=== PATIENT | male | born 1940 | race Caucasian/White ===

== ENCOUNTER 2017-11-24 20:27 | Outpatient (CLI) | payer MEDICARE, OTHER | END 2017-11-24 20:28 | disposition short-term general hospital (02) | LOC: EMS 20:27 | PROVIDERS: ATTEND Surgery | DX: R10.9 Unspecified abdominal pain (principal); R55 Syncope and collapse | CPT/HCPCS: A0425; A0427 ==

== ENCOUNTER 2017-11-25 17:34 | Inpatient (IN) | payer MEDICARE, OTHER ==
[2017-11-25 18:06] LABS: BASOPHILS % (AUTO) 0.2 %; HGB - HEMOGLOBIN 13.2 g/dL (14.0-18.0); LYMPHOCYTES # (AUTO) 0.5 10^3/uL (1.5-3.5); LYMPHOCYTES % (AUTO) 5.2 %; MEAN CORPUSCULAR HEMOGLOBIN 33.3 pg (27.0-31.0); MEAN CORPUSCULAR HGB CONC 33.5 g/dL (32.0-36.0); MEAN CORPUSCULAR VOLUME 99.3 fL (80.0-94.0); MEAN PLATELET VOLUME 8.6 fL (7.4-11.4); MONOCYTES # (AUTO) 0.8 10^3/uL (0.0-1.0); MONOCYTES % (AUTO) 7.8 %; NEUTROPHILS # (AUTO) 9.2 10^3/uL (1.5-6.6); NEUTROPHILS % (AUTO) 86.8 %; PLT - PLATELET COUNT 170 10^3/uL (130-450); RED BLOOD COUNT 3.95 10^6/uL (4.70-6.10); RED CELL DISTRIBUTION WIDTH 13.3 % (12.0-15.0); WHITE BLOOD COUNT 10.6 x10^3/uL (4.8-10.8)
[2017-11-25 18:17] LABS: ALBUMIN 3.1 g/dL (3.2-5.5); ALBUMIN/GLOBULIN RATIO 0.9 (1.0-2.2); BILIRUBIN,TOTAL 1.3 mg/dL (0.2-1.0); CALCIUM 8.6 mg/dL (8.5-10.3); CREATININE 1.5 mg/dL (0.6-1.2); INR 1.2 (0.8-1.2); PT - PROTHROMBIN TIME 13.7 secs (9.9-12.6); TOTAL PROTEIN 6.4 g/dL (6.7-8.2)
--- NOTE | 2017-11-25 18:55 | CT Report ---
Procedure Date: 11/25/2017 Accession Number: [id number] / [id number] Procedure: CT - Head W/O CPT Code: FULL RESULT: EXAM: CT HEAD EXAM DATE: 11/25/2017 06:31 PM. CLINICAL HISTORY: ALOC. COMPARISON: None. TECHNIQUE: Multiaxial CT images were obtained from the foramen magnum to the vertex. Reformats: Coronal. IV contrast: None. In accordance with CT protocol optimization, one or more of the following dose reduction techniques were utilized for this exam: automated exposure control, adjustment of mA and/or KV based on patient size, or use of iterative reconstructive technique. FINDINGS: Parenchyma: No intraparenchymal hemorrhage. No evidence of mass, midline shift, or CT findings of infarction. Gongora-white differentiation is distinct. Extraaxial Spaces: Mild volume loss. No subdural or epidural collections identified. Ventricles: Mildly enlarged. Sinuses and Orbits: Imaged paranasal sinuses, orbits, and mastoids show no significant abnormality. Bones: No evidence of fracture or calvarial defect. Other: None. IMPRESSION: No acute intracranial abnormality. RADIA
[2017-11-25] MEDS ORDERED: THIAMINE INJ 100 MG, FOLIC ACID INJ 1 MG in SODIUM CHLORIDE 0.9% 100ML 100 ML IV STA (18:57)
[2017-11-25] MEDS ORDERED: MAGNESIUM SULFATE 2 GRAM 2 GM/50 ML BAG IV STA (18:57)
[2017-11-25] MEDS ORDERED: MULTIVITAMIN 10 ML in SODIUM CHLORIDE 0.9% 1,000 ML IV STA (18:57)
[2017-11-25] MEDS ORDERED: LORazepam 2 MG/ML VIAL IVP STA (18:58)
[2017-11-25] MEDS ORDERED: MAGNESIUM SULFATE 2 GM in SODIUM CHLORIDE 0.9% 50 ML IV STA ×2 (19:00→19:11)
--- NOTE | 2017-11-25 19:00 | ED Physician Documentation ---
PD HPI ALTERED MENTAL STATUS - Stated complaint Stated Complaint: CONFUSION/WARFARIN - Chief complaint Chief Complaint: Neuro - History obtained from History obtained from: Patient, Family - History of Present Illness Timing - onset: Today Timing - duration: Days (1) Timing - details: Gradual onset Quality / character: Confused, Disoriented, Hallucinating Associated symptoms: General weakness. No: Fever, Headache, Stiff neck, Dyspnea , Cough, NVD, Urinary sx, Focal weakness, Seizure activity, Syncope Contributing factors: Known dementia Basline status: Alert and oriented X 3, Ambulatory, Independent Recently seen: Admitted (to [facility] for GI bleed, discharged today) - Additional information Additional information: Patient is a 77-year-old male who is brought in to the hospital tonight by his for hallucinations and disorientation. She states that this has happened before but never this bad. He is an alcoholic drinks at least a sixpack of beer a day. Last drink was yesterday as he was in the hospital overnight for a GI bleed. The symptoms have worsened since he got home. He was admitted at [facility] last night Review of Systems Unable to obtain: Confused, Dementia Constitutional: denies: Fever GI: denies: Vomiting Neurologic: reports: Confused, Altered mental status. denies: Focal weakness PD PAST MEDICAL HISTORY - Past Medical History Past Medical History: Yes Cardiovascular: Deep vein thrombosis - Past Surgical History Past Surgical History: Yes Cardiovascular: CABG, Coronary stent - Present Medications Home Medications: Ambulatory Orders Medication Instructions Recorded Confirmed Ascorbic Acid 500 mg ORAL DAILY 11/25/17 11/25/17 Citalopram [CeleXA] 20 mg PO DAILY 11/25/17 11/25/17 Metoprolol Succinate 12.5 mg PO DAILY 11/25/17 11/25/17 Nitroglycerin 0.4 mg SL 11/25/17 OLANZapine [Zyprexa Zydis] 10 mg PO 11/25/17 [place]-3S/Dha/Epa/Fish Oil/D3 1 each PO 11/25/17 [[place]-3 + D Softgel] Pantoprazole [Protonix] 40 mg PO 11/25/17 Warfarin [Coumadin] 5 mg PO 1400 11/25/17 11/25/17 busPIRone [Buspar] 10 mg PO BID 11/25/17 11/25/17 - Allergies Allergies/Adverse Reactions: Allergies Allergy/AdvReac Type Severity Reaction Status Date / Time haloperidol [From Haldol] Allergy Anaphylaxis Verified 11/25/17 19:16 - Living Situation Living Situation: reports: With family Living Arrangement: reports: At home - Social History Does the pt smoke?: No Does the pt drink ETOH?: Yes PD ED PE NORMAL - Vitals Vital signs reviewed: Yes - General General: No acute distress, Well developed/nourished - HEENT HEENT: PERRL, Moist mucous membranes, Pharynx benign - Neck Neck: Supple, no meningeal sign - Cardiac Cardiac: RRR, Strong equal pulses - Respiratory Respiratory: No respiratory distress, Clear bilaterally - Abdomen Abdomen: Soft, Non tender, Non distended - Back Back: No spinal TTP - Derm Derm: Warm and dry, No rash - Extremities Extremities: No edema, No calf tenderness / cord - Neuro Neuro: No motor deficit, No sensory deficit, Normal speech Results - Vitals Vitals: Vital Signs - 24 hr 11/25/17 11/25/17 11/25/17 17:44 19:28 20:58 Temperature 36.8 C Heart Rate 77 78 85 Heart Rate [ Radial] Respiratory 16 28 H 29 H Rate Blood Pressure 117/78 125/85 H 127/90 H Blood Pressure [Right Brachial artery] O2 Saturation 94 95 95 11/25/17 21:09 Temperature Heart Rate Heart Rate [ 85 Radial] Respiratory 17 Rate Blood Pressure Blood Pressure 130/67 [Right Brachial artery] O2 Saturation 97 Oxygen O2 Source Room air - Labs Labs: Laboratory Tests 11/25/17 11/25/17 11/25/17 17:50 18:01 18:01 WBC 10.6 RBC 3.95 L Hgb 13.2 L Hct 39.3 L MCV 99.3 H MCH 33.3 H MCHC 33.5 RDW 13.3 Plt Count 170 MPV 8.6 Neut # (Auto) 9.2 H Lymph # (Auto) 0.5 L Kern # (Auto) 0.8 Eos # (Auto) 0.0 Baso # (Auto) 0.0 Absolute Nucleated RBC 0.00 Nucleated RBC % 0.0 PT INR VBG pH VBG pCO2 VBG pO2 VBG HCO3 VBG Total CO2 VBG O2 Saturation VBG Base Excess Sodium 136 Potassium 4.1 Chloride 111 Carbon Dioxide 17 L Anion Gap 8.0 BUN 27 H Creatinine 1.5 H Estimated GFR (MDRD) 45 L Glucose 116 H POC Whole Bld Glucose 117 H Calcium 8.6 Total Bilirubin 1.3 H AST 35 ALT 20 Alkaline Phosphatase 53 Ammonia Total Protein 6.4 L Albumin 3.1 L Globulin 3.3 Albumin/Globulin Ratio 0.9 L Lipase 22 Urine Color Urine Clarity Urine pH Ur Specific Fate Urine Protein Urine Glucose (UA) Urine Ketones Urine Occult Blood Urine Nitrite Urine Bilirubin Urine Urobilinogen Ur Leukocyte Esterase Urine RBC Urine WBC Urine WBC Clumps Ur Squamous Epith Cells Urine Bacteria Ur Microscopic Review Urine Culture Comments Ethyl Alcohol Serum Ketones 11/25/17 11/25/17 11/25/17 18:01 18:01 18:10 WBC RBC Hgb Hct MCV MCH MCHC RDW Plt Count MPV Neut # (Auto) Lymph # (Auto) Kern # (Auto) Eos # (Auto) Baso # (Auto) Absolute Nucleated RBC Nucleated RBC % PT 13.7 H INR 1.2 VBG pH VBG pCO2 VBG pO2 VBG HCO3 VBG Total CO2 VBG O2 Saturation VBG Base Excess Sodium Potassium Chloride Carbon Dioxide Anion Gap BUN Creatinine Estimated GFR (MDRD) Glucose POC Whole Bld Glucose Calcium Total Bilirubin AST ALT Alkaline Phosphatase Ammonia Total Protein Albumin Globulin Albumin/Globulin Ratio Lipase Urine Color Urine Clarity Urine pH Ur Specific Fate Urine Protein Urine Glucose (UA) Urine Ketones Urine Occult Blood Urine Nitrite Urine Bilirubin Urine Urobilinogen Ur Leukocyte Esterase Urine RBC Urine WBC Urine WBC Clumps Ur Squamous Epith Cells Urine Bacteria Ur Microscopic Review Urine Culture Comments Ethyl Alcohol < 5.0 Serum Ketones NEGATIVE 11/25/17 11/25/17 11/25/17 19:06 20:35 20:55 WBC RBC Hgb Hct MCV MCH MCHC RDW Plt Count MPV Neut # (Auto) Lymph # (Auto) Kern # (Auto) Eos # (Auto) Baso # (Auto) Absolute Nucleated RBC Nucleated RBC % PT INR VBG pH 7.470 H VBG pCO2 26.0 L VBG pO2 43.7 VBG HCO3 18.5 L VBG Total CO2 19.3 L VBG O2 Saturation 85.2 H VBG Base Excess -3.7 L Sodium Potassium Chloride Carbon Dioxide Anion Gap BUN Creatinine Estimated GFR (MDRD) Glucose POC Whole Bld Glucose Calcium Total Bilirubin AST ALT Alkaline Phosphatase Ammonia 16.3 Total Protein Albumin Globulin Albumin/Globulin Ratio Lipase Urine Color YELLOW Urine Clarity HAZY Urine pH 6.0 Ur Specific Fate 1.025 Urine Protein TRACE Urine Glucose (UA) NEGATIVE Urine Ketones NEGATIVE Urine Occult Blood MODERATE H Urine Nitrite NEGATIVE Urine Bilirubin NEGATIVE Urine Urobilinogen 0.2 (NORMAL) Ur Leukocyte Esterase NEGATIVE Urine RBC 11-25 H Urine WBC 11-25 H Urine WBC Clumps PRESENT Ur Squamous Epith Cells RARE Squamous Urine Bacteria Few Ur Microscopic Review INDICATED Urine Culture Comments INDICATED Ethyl Alcohol Serum Ketones - Rads (name of study) head ct Radiology: Prelim report reviewed, EMP read contemporaneously, See rad report ( IMPRESSION: No acute intracranial abnormality. ) PD MEDICAL DECISION MAKING - ED course Complexity details: reviewed old records, reviewed results, re-evaluated patient , considered differential, d/w patient, d/w family, d/w [employer] ax consultant ED course: Patient is a 77-year-old male who presents to the emergency department with altered mental status. He is alert's, oriented to person only. He is acutely altered. Possible alcohol withdrawal? Possible infectious source? Urinalysis and chest x-ray are pending at the time of admission and these will be followed up by the hospitalist, Dr. Wu. Given banana bag and ativan in the ED. This document was made in part using voice recognition software. While efforts are made to proofread this document, sound alike and grammatical errors may occur. - Sepsis Event Vital Signs: Vital Signs - 24 hr 11/25/17 11/25/17 11/25/17 17:44 19:28 20:58 Temperature 36.8 C Heart Rate 77 78 85 Heart Rate [ Radial] Respiratory 16 28 H 29 H Rate Blood Pressure 117/78 125/85 H 127/90 H Blood Pressure [Right Brachial artery] O2 Saturation 94 95 95 11/25/17 21:09 Temperature Heart Rate Heart Rate [ 85 Radial] Respiratory 17 Rate Blood Pressure Blood Pressure 130/67 [Right Brachial artery] O2 Saturation 97 Oxygen O2 Source Room air Departure - Departure Disposition: ED Place in Observation Clinical Impression: Altered mental status Qualifiers: Altered mental status type: unspecified Qualified Code(s): R41.82 - Altered mental status, unspecified Condition: Stable Discharge Date/Time: 11/25/17 21:08
[2017-11-25 19:12] LABS: VBG BASE EXCESS -3.7 mmol/L (-2 - +2); VBG PH 7.47 (7.31-7.41); VBG PO2 43.7 mmHg (25-47); VBG TOTAL CO2 19.3 mmol/L (24-29)
[2017-11-25] MEDS ORDERED: ACETAMINOPHEN 325 MG TABLET PO PRN (20:17)
[2017-11-25] MEDS ORDERED: PANTOPRAZOLE 40 MG VIAL IVP STA ×2 (20:17→20:36)
[2017-11-25] MEDS ORDERED: ONDANSETRON 4 MG/2 ML VIAL IVP PRN (20:17)
[2017-11-25] MEDS ORDERED: LORazepam 2 MG/ML VIAL IVP PRN (20:17)
[2017-11-25] MEDS ORDERED: PROCHLORPERAZINE 10 MG/2 ML VIAL IVP PRN (20:17)
--- NOTE | 2017-11-25 21:01 | XRAY Report ---
Procedure Date: 11/25/2017 Accession Number: [id number] / [id number] Procedure: XR - Chest 1 View X-Ray CPT Code: 63138 FULL RESULT: EXAM: CHEST RADIOGRAPHY EXAM DATE: 11/25/2017 08:24 PM. CLINICAL HISTORY: Altered mental status. COMPARISON: 07/27/2013. TECHNIQUE: 1 view. FINDINGS: Lungs/Pleura: Blunting of the left costophrenic angle with dense left lower lobe opacities. No pneumothorax. The right lung is clear. No right pneumothorax or effusion. Mediastinum: Status post sternotomy. No cardiac enlargement. Atheromatous plaques are noted in the thoracic arch. Other: None. IMPRESSION: 1. Sternotomy. No cardiac enlargement. 2. Left lower lobe opacities with small left pleural effusion. RADIA
[2017-11-25 21:05] LABS: BILIRUBIN,URINE NEGATIVE (NEGATIVE); GLUCOSE, URINE (UA) NEGATIVE (NEGATIVE); KETONES,URINE (UA) NEGATIVE (NEGATIVE); LEUKOCYTE ESTERASE, URINE NEGATIVE (NEGATIVE); NITRITE,URINE NEGATIVE (NEGATIVE); OCCULT BLOOD,URINE MODERATE (NEGATIVE); PROTEIN,URINE TRACE mg/dL (NEGATIVE); UROBILINOGEN,URINE 0.2 (NORMAL) E.U./dL (NORMAL)
[2017-11-25 21:11] LABS: CLARITY,URINE HAZY (CLEAR); WBC CLUMPS,URINE PRESENT
[2017-11-25 21:12] LABS: BACTERIA,URINE Few /HPF (None Seen); SQUAMOUS EPITHELIAL CELL,UR RARE Squamous (<= Few)
--- NOTE | 2017-11-25 21:56 | HISTORY & PHYSICAL EXAMINATION ---
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 The patient is unable to provide history due to altered mental status and dementia and the patient's history is provided by his . The patient's states that normally the patient is alert and oriented. He still drives and he still takes his dog out for a hike every day. She states that he is forgetful but does not have severe dementia. She states that over the last 2 days he has become increasingly weak. She states that he was unable to do his normal daily routine because he just felt so weak and fatigued. Yesterday she states that he began having abdominal pain and the patient's and daughter decided to take him to the emergency department at [facility]. The patient's states that while getting the patient into the car to go to the emergency department he passed out. He was worked up at [facility] and found to have an INR of 2.7 with heme positive stools. The patient's hemoglobin was 12.7 and he was placed in observation. The patient's aspirin and Coumadin were held and he was given Protonix daily. They did not perform EGD as it was felt the patient likely had gastritis or peptic ulcer disease from drinking alcohol, taking aspirin and Coumadin. The patient's hemoglobin remained stable overnight and he was discharged home and told to hold his Coumadin. The patient's states that after discharge from [facility] the patient returned home and was hallucinating. She states he was talking about horses that were not there. She states that he did not recognize her and was very confused. She also states that he became increasingly weak over the course of the day to the point where he was barely able to stand. She became very concerned and decided to bring him back to the emergency department this time at [facility]. The patient was no longer complaining of abdominal pain. He was not having any fevers or chills according to the patient's . The patient is unable to provide a detailed review of systems due to his altered mentation. However the patient's did not note the patient going to the bathroom more frequently or complaining of any dysuria. She also did not note him having any new cough or shortness of breath. On presentation to the emergency department the patient was afebrile and had normal vital signs. The patient was very confused and had had a change from his normal mental status. The patient's lab work revealed no leukocytosis, hemoglobin of 13.2 which was stable from his discharge from [facility] earlier in the day. The patient's creatinine was 1.5 which is near his baseline. Patient's bilirubin was 1.3 which was mildly elevated. Patient's ammonia level was normal. Patient's UA revealed 11-25 RBCs and 11-25 WBCs concerning for a urinary tract infection. The patient's chest x-ray revealed left lower lobe opacities with small left pleural effusion concerning for pneumonia. The patient did undergo a CT of his head given his altered mentation and was found to have no acute intracranial abnormality. Given the patient's altered mentation and generalized weakness in the setting of UTI and pneumonia patient was admitted for treatment of both UTI and pneumonia. With IV antibiotics and IV fluids. History - Past Medical History Cardiovascular: reports: High cholesterol, Coronary artery disease, Deep vein thrombosis Respiratory: reports: None Neuro: reports: Dementia, Head injury, Seizure disorder, Other (Encephalitis) GI: reports: GI bleed : reports: Renal insuffiency Psych: reports: Depression Musculoskeletal: reports: Osteoarthritis, Gout Other Past Medical History: encelphalitis - Past Surgical History Ortho: reports: Other Cardiovascular: reports: CABG, Coronary stent - Family & Social History Family History: Mother: , Cancer (mom had blood ca and GF had melanoma) , Father: , Mental Illness (Depression and suicide), Brother: Mental Illness, Other family: Cancer, Mental Illness Living arrangement: At home Living Situation: With spouse/s.o. Social History Notes: The patient has lived on [facility] for the last 30 years. He is a retired casino cashier. He was originally from [place] and worked as a casino cashier for 50 years until he retired just a couple of years ago. The patient is and has been to his for 51 years. The patient's is originally from [place]. They have 2 children both of whom live on [facility]. The patient has been chewing tobacco for 70 years but does not smoke cigarettes. He drinks about a 6 pack a day on average and has been doing so consistently for the last 6 months. Prior to that he would only drink a couple of beers a night. He does not use any illicit drugs. - POLST Patient has POLST: No POLST Status: Full Code Meds/Allgy - Home Medications Home Medications: Ambulatory Orders Medication Instructions Recorded Confirmed Ascorbic Acid 500 mg ORAL DAILY 11/25/17 11/25/17 Citalopram [CeleXA] 20 mg PO DAILY 11/25/17 11/25/17 Metoprolol Succinate 12.5 mg PO DAILY 11/25/17 11/25/17 Nitroglycerin 0.4 mg SL 11/25/17 OLANZapine [Zyprexa Zydis] 10 mg PO 11/25/17 [place]-3S/Dha/Epa/Fish Oil/D3 1 each PO 11/25/17 [[place]-3 + D Softgel] Pantoprazole [Protonix] 40 mg PO 11/25/17 Warfarin [Coumadin] 5 mg PO 1400 11/25/17 11/25/17 busPIRone [Buspar] 10 mg PO BID 11/25/17 11/25/17 - Allergies Allergies/Adverse Reactions: Allergies Allergy/AdvReac Type Severity Reaction Status Date / Time haloperidol [From Haldol] Allergy Anaphylaxis Verified 11/25/17 19:16 Review of Systems - Other Findings Other Findings: Unable to obtain a conference of review of systems secondary to the patient's altered mentation. Review of systems was obtained from the patient's and the pertinent positives and negatives are stated above in the HPI. Exam - Vital Signs Reviewed Vital Signs: Yes - Physical Exam General Appearance: positive: Alert, Mild distress (very weak), Other (Confused , does not know his wifes name or where he is.) Eyes Bilateral: positive: Normal inspection, PERRL, EOMI, No lid inflammation, Conjunctivae nml, No scleral icterus ENT: positive: ENT inspection nml, Pharynx nml, Dry mucous membranes. negative : Purulent nasal drainage, Pharyngeal erythema, Oral lesions Neck: positive: Nml inspection, Thyroid nml, No JVD, Trachea midline. negative : Thyromegaly, Lymphadenopathy (R), Lymphadenopathy (L), Stiff neck, Carotid bruit, Tracheal deviation Respiratory: positive: Chest non-tender, No respiratory distress, Rales (Left base), Rhonchi (Left lower lung) Cardiovascular: positive: Regular rate & rhythm, No murmur, No gallop Peripheral Pulses: positive: 2+ Abdomen: positive: Non-tender, No organomegaly, Nml bowel sounds, No distention. negative: Guarding, Rebound, Hepatomegaly Back: positive: Nml inspection. negative: CVA tenderness (R), CVA tenderness (L ) Skin: positive: Color nml, No rash, Warm, Dry. negative: Cyanosis, Diaphoresis , Pallor Extremities: positive: Non-tender, Full ROM, Nml appearance, No pedal edema Neurologic/Psychiatric: positive: CN's nml (2-12), Motor nml, Sensation nml, Mood/affect nml, Disoriented to place, Disoriented to time, Weakness ( generalized) Conclusion/Plan - Problem List (1) CAP (community acquired pneumonia) Conclusion/Plan: Patient presented with generalized weakness and confusion. Patient was afebrile and was not hypoxic on presentation. Patient's chest x-ray does reveal left lung opacities and a pleural effusion. Given the patient's systemic symptoms he will be treated with IV antibiotics for pneumonia. Plan: IV Levaquin Oxygen as needed CT chest given history of tobacco use to rule out possible malignancy PT evaluation given weakness Qualifiers: Laterality: left Lung location: lower lobe of lung Qualified Code(s): J18.1 - Lobar pneumonia, unspecified organism (2) UTI (urinary tract infection) Conclusion/Plan: Patient presented with generalized weakness and altered mental status. Patient' s urinalysis was positive with RBCs and WBCs. Ultrasound of the patient's abdomen also revealed an enlarged prostate. Patient likely has UTI and possible prostatitis. Plan: Treat with IV Levaquin and consider prolonged treatment for prostatitis with minimum of 14 days of treatment and up to 6 weeks of treatment. Follow-up urine culture PT evaluation for weakness Qualifiers: Urinary tract infection type: acute cystitis Hematuria presence: with hematuria Qualified Code(s): N30.01 - Acute cystitis with hematuria (3) Metabolic encephalopathy Conclusion/Plan: Patient presents with confusion which is likely secondary to infection UTI and pneumonia. Patient does not appear to be in alcohol withdrawal and has a normal ammonia level. Patient's CT head was negative. Plan: Patient will be given IV fluids and treated with IV antibiotics we will continue to monitor his mentation. Patient has a history of dementia and is at high risk of having delirium therefore the patient will be given Zyprexa at night and we will monitor for delirium. (4) Generalized weakness Conclusion/Plan: Patient presented with generalized weakness and was having difficulty just standing. This was a huge change from his normal routine where he hikes for more than an hour a day with his dog. This is likely secondary to ongoing infection with UTI and pneumonia. Plan: Treat infection with IV antibiotics and order PT. (5) Alcohol abuse Conclusion/Plan: Patient has a history of alcohol abuse cording to the he has been drinking more heavily for the last 6 months. She states that he has been drinking a sixpack of beer a day. She states he has never gone through alcohol withdrawal and she does not believe that his current condition is due to alcohol withdrawal. The patient does not show any signs of alcohol withdrawal aside from hallucinations which the patient's states he has had before when he had a urinary tract infection with Klebsiella. The patient however does appear to be dehydrated and would likely benefit from a banana bag. Plan: Patient will be placed on a banana bag with IV thiamine, IV folic acid and IV multivitamin. Patient will be monitored for alcohol withdrawal and given Ativan as needed Patient will be counseled on need to quit drinking once he is more alert and aware. (6) CKD (chronic kidney disease) stage 3, GFR 30-59 ml/min Conclusion/Plan: Patient has CKD stage III and his creatinine appears stable on presentation. The patient's ultrasound of his abdomen shows that he does not have any postobstructive renal failure. It does show medical renal disease. Plan: Patient will be given IV fluids We will monitor his creatinine Avoid nephrotoxic agents (7) History of DVT (deep vein thrombosis) Conclusion/Plan: Patient has a history of DVT and he has positive leiden 5 mutation. He was previously on lifelong Coumadin but was stopped yesterday as there was suspicion for possible GI bleed. We will continue to hold the Coumadin while the patient is hospitalized and will have him follow-up with his primary care physician and allow them to decide whether to continue the Coumadin. Patient's INR is 1.2 on presentation. - Lab Results Lab results reviewed: Yes Fish Bones: 11/25/17 18:01 11/25/17 18: Other Lab Results: Laboratory Results WBC 10.6 x10^3/uL (4.8-10.8) 11/25/17 18: RBC 3.95 10^6/uL (4.70-6.10) L 11/25/17 18: Hgb 13.2 g/dL (14.0-18.0) L 11/25/17 18: Hct 39.3 % (42.0-52.0) L 11/25/17 18: MCV 99.3 fL (80.0-94.0) H 11/25/17 18: MCH 33.3 pg (27.0-31.0) H 11/25/17 18: MCHC 33.5 g/dL (32.0-36.0) 11/25/17 18: RDW 13.3 % (12.0-15.0) 11/25/17 18: Plt Count 170 10^3/uL (130-450) 11/25/17 18: MPV 8.6 fL (7.4-11.4) 11/25/17 18:01 Neut # (Auto) 9.2 10^3/uL (1.5-6.6) H 11/25/17 18: Lymph # (Auto) 0.5 10^3/uL (1.5-3.5) L 11/25/17 18:01 Walsh # (Auto) 0.8 10^3/uL (0.0-1.0) 11/25/17 18: Eos # (Auto) 0.0 10^3/uL (0.0-0.7) 11/25/17 18: Baso # (Auto) 0.0 10^3/uL (0.0-0.1) 11/25/17 18: Absolute Nucleated RBC 0.00 x10^3/uL 11/25/17 18: Nucleated RBC % 0.0 /100WBC 11/25/17 18: PT 13.7 secs (9.9-12.6) H 11/25/17 18:01 INR 1.2 (0.8-1.2) 11/25/17 18:01 VBG pH 7.470 (7.31-7.41) H 11/25/17 19:06 VBG pCO2 26.0 mmHg (41-51) L 11/25/17 19:06 VBG pO2 43.7 mmHg (25-47) 11/25/17 19:06 VBG HCO3 18.5 mmol/L (23-28) L 11/25/17 19:06 VBG Total CO2 19.3 mmol/L (24-29) L 11/25/17 19:06 VBG O2 Saturation 85.2 % (60-80) H 11/25/17 19:06 VBG Base Excess -3.7 mmol/L (-2 - +2) L 11/25/17 19:06 Sodium 136 mmol/L (135-145) 11/25/17 18: Potassium 4.1 mmol/L (3.5-5.0) 11/25/17 18: Chloride 111 mmol/L (101-111) 11/25/17 18:01 Carbon Dioxide 17 mmol/L (21-32) L 11/25/17 18:01 Anion Gap 8.0 (6-13) 11/25/17 18:01 BUN 27 mg/dL (6-20) H 11/25/17 18:01 Creatinine 1.5 mg/dL (0.6-1.2) H 11/25/17 18:01 Estimated GFR (MDRD) 45 (>89) L 11/25/17 18:01 Glucose 116 mg/dL (70-100) H 11/25/17 18:01 POC Whole Bld Glucose 117 mg/dL (70 - 100) H 11/25/17 17:50 Calcium 8.6 mg/dL (8.5-10.3) 11/25/17 18:01 Total Bilirubin 1.3 mg/dL (0.2-1.0) H 11/25/17 18:01 AST 35 IU/L (10-42) 11/25/17 18:01 ALT 20 IU/L (10-60) 11/25/17 18:01 Alkaline Phosphatase 53 IU/L (42-121) 11/25/17 18:01 Ammonia 16.3 umol/L (7-35) 11/25/17 20:35 Total Protein 6.4 g/dL (6.7-8.2) L 11/25/17 18:01 Albumin 3.1 g/dL (3.2-5.5) L 11/25/17 18: Globulin 3.3 g/dL (2.1-4.2) 11/25/17 18: Albumin/Globulin Ratio 0.9 (1.0-2.2) L 11/25/17 18:01 Lipase 22 U/L (22-51) 11/25/17 18:01 Urine Color YELLOW 11/25/17 20:55 Urine Clarity HAZY (CLEAR) 11/25/17 20:55 Urine pH 6.0 PH (5.0-7.5) 11/25/17 20:55 Ur Specific Agate 1.025 (1.002-1.030) 11/25/17 20:55 Urine Protein TRACE mg/dL (NEGATIVE) 11/25/17 20:55 Urine Glucose (UA) NEGATIVE mg/dL (NEGATIVE) 11/25/17 20:55 Urine Ketones NEGATIVE mg/dL (NEGATIVE) 11/25/17 20:55 Urine Occult Blood MODERATE (NEGATIVE) H 11/25/17 20:55 Urine Nitrite NEGATIVE (NEGATIVE) 11/25/17 20:55 Urine Bilirubin NEGATIVE (NEGATIVE) 11/25/17 20:55 Urine Urobilinogen 0.2 (NORMAL) E.U./dL (NORMAL) 11/25/17 20:55 Ur Leukocyte Esterase NEGATIVE (NEGATIVE) 11/25/17 20:55 Urine RBC 11-25 /HPF (0-5) H 11/25/17 20:55 Urine WBC 11-25 /HPF (0-3) H 11/25/17 20:55 Urine WBC Clumps PRESENT 11/25/17 20:55 Ur Squamous Epith Cells RARE Squamous (<= Few) 11/25/17 20:55 Urine Bacteria Few /HPF (None Seen) 11/25/17 20:55 Ur Microscopic Review INDICATED 11/25/17 20:55 Urine Culture Comments INDICATED 11/25/17 20:55 Ethyl Alcohol < 5.0 mg/dL 11/25/17 18:01 Serum Ketones NEGATIVE (NEGATIVE) 11/25/17 18:10 - Diagnostic Imaging Results Diagnostic Imaging Results: positive: Final report reviewed Diagnostic Imaging Results Comments: CT head Impression: No acute intracranial abnormality. Chest x-ray Impression: 1. Sternotomy. No cardiac enlargement. 2. Left lower lobe opacities with small pleural effusion. Abdominal ultrasound Impression: 1. Hepatic echotexture is somewhat coarse raising suspicion for chronic liver disease 2. Enlarged prostate 3. Suspect medical renal disease. - EKG Results EKG Interpreted Independently: Yes EKG Findings: No significant ST elevations Core Measures - Anticipated LOS I expect patient to be DC'd or transferred within 96 hours.: Yes - DVT/VTE - Prophylaxis VTE/DVT Device ordered at admit?: Yes
[2017-11-25] MEDS ORDERED: levoFLOXacin 750 MG/150 ML 750 MG/150 ML BAG IV SCH (22:00)
[2017-11-25] MEDS: OLANZapine ODT 5 MG TABLET TL SCH (22:08)
[2017-11-25] MEDS: busPIRone 5 MG TABLET PO SCH (22:08)
[2017-11-25] MEDS ORDERED: SODIUM CHLORIDE FLUSH 0.9% 10 ML SYRINGE ONE (22:15)
--- NOTE | 2017-11-26 00:36 | Ultrasound Report ---
Procedure Date: 11/25/2017 Accession Number: [id number] / [id number] Procedure: US - Abdomen Complete CPT Code: FULL RESULT: EXAM: ABDOMEN ULTRASOUND EXAM DATE: 11/25/2017 10:53 PM. CLINICAL HISTORY: Alcoholic with altered mental status, concern for liver cirrhosis. COMPARISON: None. TECHNIQUE: Real-time scanning was performed with static images obtained. FINDINGS: Liver: Somewhat coarse echotexture without focal abnormality seen. Main portal vein flow: Hepatopetal. Gallbladder: No shadowing stones, gross wall thickening or reported tenderness. Biliary System: Common bile duct measures 5 mm. No intrahepatic or extrahepatic ductal dilatation. Pancreas: Not seen due to bowel gas. Kidneys: Right: 11 cm longitudinally. Cysts measuring up to 3 cm. No hydronephrosis. Echogenic parenchyma. Left: 12 cm longitudinally. Cysts measuring up to 3.5 cm. No hydronephrosis. Echogenic cortex. Spleen: 9 cm. Normal in size and echotexture. Aorta and Inferior Vena Cava: Unremarkable. Other: Probable moderately enlarged prostate. IMPRESSION: 1. Hepatic echotexture is somewhat coarse raising suspicion for chronic liver disease. 2. Enlarged prostate. 3. Suspect medical renal disease. RADIA
[2017-11-26] MEDS: SODIUM CHLORIDE FLUSH 0.9% 10 ML SYRINGE IVP SCH ×2 (01:20→08:25)
[2017-11-26] MEDS: SODIUM CHLORIDE FLUSH 0.9% 10 ML SYRINGE IVP PRN ×2 (02:45→04:27)
[2017-11-26] MEDS ORDERED: IOPAMIDOL-300 100 ML VIAL ONE (04:39)
[2017-11-26] MEDS ORDERED: IOPAMIDOL-300 100 ML VIAL IVP ONE (05:25)
--- NOTE | 2017-11-26 06:04 | CT Report ---
Procedure Date: 11/26/2017 Accession Number: [id number] / [id number] Procedure: CT - Chest W/ CPT Code: FULL RESULT: EXAM: CT CHEST EXAM DATE: 11/26/2017 05:26 AM. CLINICAL HISTORY: Left-sided opacities and effusion seen on chest x-ray. COMPARISONS: ABDOMEN COMPLETE 11/25/2017. TECHNIQUE: Routine helical CT imaging was performed through the chest. IV contrast: None. Reconstructions: Coronal and sagittal. In accordance with CT protocol optimization, one or more of the following dose reduction techniques were utilized for this exam: automated exposure control, adjustment of mA and/or KV based on patient size, or use of iterative reconstructive technique. FINDINGS: Lungs/Pleura: Small left pleural effusion. Moderate left lower lobe atelectasis. Mild right lung dependent atelectasis. Mediastinum and Upper Abdomen: Moderate to large hiatal hernia containing more than half of the stomach. Evidence of either distal esophagus or proximal gastric perforation. Moderate complex gas and fluid within the hernia sac adjacent to the stomach on axial images 46 through 52. Gas and fluid pocket to the left of the stomach in the hernia sac measures approximately 7 x 2.5 x 7 cm. There is a small amount of subdiaphragmatic free air as well. Adjacent to the gastric body in the upper abdomen is an approximately 6 x 4 x 4.5 cm gas and fluid collection, axial image 54. Previous CABG. Heart size upper normal. Noncontrast aorta grossly unremarkable. No bulky adenopathy. Bilateral renal cysts. Bones: Previous median sternotomy. No acute osseous abnormality seen. Other: None. IMPRESSION: 1. Either distal esophageal or proximal gastric perforation within a moderate to large hiatal hernia sac in the chest. Thoracic surgery consultation suggested. 2. Gas and fluid collections within the hernia sac and adjacent to the subdiaphragmatic stomach measure up to 6 x 4 x 4.5 cm and may reflect early abscesses. 3. Small left pleural effusion with moderate left lower lobe atelectasis. 4. Previous median sternotomy. RADIA The above findings were discussed with Dionicio Wu by Dr. Domenico Sheets at 06:02 hrs on 11/26/17.
[2017-11-26 06:20] LABS: BASOPHILS % (AUTO) 0.1 %; EOSINOPHILS % (AUTO) 0.2 %; HGB - HEMOGLOBIN 12.1 g/dL (14.0-18.0); LYMPHOCYTES # (AUTO) 0.5 10^3/uL (1.5-3.5); MEAN CORPUSCULAR HEMOGLOBIN 34.2 pg (27.0-31.0); MEAN CORPUSCULAR HGB CONC 34.2 g/dL (32.0-36.0); MEAN CORPUSCULAR VOLUME 100.1 fL (80.0-94.0); MONOCYTES # (AUTO) 0.5 10^3/uL (0.0-1.0); MONOCYTES % (AUTO) 6.7 %; PLT - PLATELET COUNT 138 10^3/uL (130-450); RED BLOOD COUNT 3.55 10^6/uL (4.70-6.10); RED CELL DISTRIBUTION WIDTH 13.2 % (12.0-15.0); WHITE BLOOD COUNT 8.1 x10^3/uL (4.8-10.8)
[2017-11-26 06:28] LABS: INR 1.2 (0.8-1.2); PT - PROTHROMBIN TIME 13.1 secs (9.9-12.6)
[2017-11-26] MEDS ORDERED: PIPERACILLIN/TAZOBACTAM 4.5 GM in SODIUM CHLORIDE 0.9% MINIBAG 100 ML IV STA (06:32)
[2017-11-26 06:34] LABS: ALBUMIN 2.6 g/dL (3.2-5.5); ALBUMIN/GLOBULIN RATIO 0.9 (1.0-2.2); BILIRUBIN,TOTAL 1.1 mg/dL (0.2-1.0); CALCIUM 8.2 mg/dL (8.5-10.3); CREATININE 1.4 mg/dL (0.6-1.2); MAGNESIUM 2.2 mg/dL (1.7-2.8); PHOSPHORUS 1.7 mg/dL (2.5-4.6); TOTAL PROTEIN 5.6 g/dL (6.7-8.2)
[2017-11-26] MEDS ORDERED: PANTOPRAZOLE 40 MG TABLET PO SCH (07:00)
--- NOTE | 2017-11-26 07:42 | DISCHARGE SUMMARY ---
Discharge Summary Admit Date: 11/25/17 Discharge Date: 11/26/17 Discharging Provider: Dionicio Wu MD Primary Care Provider: Kole Hebert MD Code Status: Attempt Resuscitation Condition at Discharge: Poor Discharge Disposition: 02 Transfer Acute Care Hosp Discharge Facility Name: [facility]; Accepting MD: Edmar Walton/Edel - DIAGNOSES Admission Diagnoses: 1. Community-acquired pneumonia 2. Urinary tract infection 3. Metabolic encephalopathy 4. Generalized weakness 5. Alcohol abuse 6. CKD stage III 7. History of DVT Discharge Diagnoses with Status of Each Condition: 1. Distal esophageal or proximal gastric perforation within a moderate to large hiatal hernia sac in the chest: Critical 2. Community acquired pneumonia: Stable 3. Urinary tract infection: Stable 4. Metabolic encephalopathy: Stable 5. Generalized weakness: Stable 6. Alcohol abuse: Stable 7. CKD stage III: Stable 8. 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 The patient is unable to provide history due to altered mental status and dementia and the patient's history is provided by his . The patient's states that normally the patient is alert and oriented. He still drives and he still takes his dog out for a hike every day. She states that he is forgetful but does not have severe dementia. She states that over the last 2 days he has become increasingly weak. She states that he was unable to do his normal daily routine because he just felt so weak and fatigued. Yesterday she states that he began having abdominal pain and the patient's and daughter decided to take him to the emergency department at [facility]. The patient's states that while getting the patient into the car to go to the emergency department he passed out. He was worked up at [facility] and found to have an INR of 2.7 with heme positive stools. The patient's hemoglobin was 12.7 and he was placed in observation. The patient's aspirin and Coumadin were held and he was given Protonix daily. They did not perform EGD as it was felt the patient likely had gastritis or peptic ulcer disease from drinking alcohol, taking aspirin and Coumadin. The patient's hemoglobin remained stable overnight and he was discharged home and told to hold his Coumadin. The patient's states that after discharge from [facility] the patient returned home and was hallucinating. She states he was talking about horses that were not there. She states that he did not recognize her and was very confused. She also states that he became increasingly weak over the course of the day to the point where he was barely able to stand. She became very concerned and decided to bring him back to the emergency department this time at [facility]. The patient was no longer complaining of abdominal pain. He was not having any fevers or chills according to the patient's . The patient is unable to provide a detailed review of systems due to his altered mentation. However the patient's did not note the patient going to the bathroom more frequently or complaining of any dysuria. She also did not note him having any new cough or shortness of breath. On presentation to the emergency department the patient was afebrile and had normal vital signs. The patient was very confused and had had a change from his normal mental status. The patient's lab work revealed no leukocytosis, hemoglobin of 13.2 which was stable from his discharge from [facility] earlier in the day. The patient's creatinine was 1.5 which is near his baseline. Patient's bilirubin was 1.3 which was mildly elevated. Patient's ammonia level was normal. Patient's UA revealed 11-25 RBCs and 11-25 WBCs concerning for a urinary tract infection. The patient's chest x-ray revealed left lower lobe opacities with small left pleural effusion concerning for pneumonia. The patient did undergo a CT of his head given his altered mentation and was found to have no acute intracranial abnormality. Given the patient's altered mentation and generalized weakness in the setting of UTI and pneumonia patient was admitted for treatment of both UTI and pneumonia. With IV antibiotics and IV fluids. - HOSPITAL COURSE Hospital Course: Patient was admitted to the medical [facility]tan and remained stable over the course of the night. The patient was again seen to have diffuse abdominal tenderness, guarding and a distended abdomen. Given the patient's findings on chest x-ray of a left lung opacity and pleural effusion with his history of tobacco use a CT of the chest was ordered with contrast. The CT of his chest revealed either distal esophageal or proximal gastric perforation within a moderate to large hiatal hernia sac in the chest. Gas and fluid collections within the hernia sac and adjacent to the sub-diaphragmatic stomach measure up to 6 x 4 x 4.5 cm and may reflect early abscess. Given these findings I spoke with our general surgeon Dr. Pires and he felt that the patient needed to be transferred for thoracic surgery to have this perforation repaired and abscess drained. The patient was started on broad-spectrum IV antibiotics with IV vancomycin and IV Zosyn. The patient had already received IV Levaquin for his UTI/pneumonia. The patient was made n.p.o. and continued on IV fluids. Call was made to [facility] and I spoke with the thoracic surgeon cafeteria monitor Dr. Ly who kindly accepted the patient in transfer. He stated that the patient would need further workup with CT with oral contrast as well as a swallow study to determine whether the patient's perforation was in the chest wall or lower down in the stomach. He asked that the patient receive broad- spectrum IV antibiotics and be transferred over to [facility]. The patient was transferred to the intensive care unit at [facility] in the care of Dr Hollingsworth. - ALLERGIES Allergies/Adverse Reactions: Allergies Allergy/AdvReac Type Severity Reaction Status Date / Time haloperidol [From Haldol] Allergy Anaphylaxis Verified 11/25/17 19:16 - MEDICATIONS Home Medications: Ambulatory Orders Medication Instructions Recorded Confirmed Ascorbic Acid 500 mg ORAL DAILY 11/25/17 11/25/17 Citalopram [CeleXA] 20 mg PO DAILY 11/25/17 11/25/17 Metoprolol Succinate 12.5 mg PO DAILY 11/25/17 11/25/17 Nitroglycerin 0.4 mg SL 11/25/17 OLANZapine [Zyprexa Zydis] 10 mg PO 11/25/17 [place]-3S/Dha/Epa/Fish Oil/D3 1 each PO 11/25/17 [[place]-3 + D Softgel] Pantoprazole [Protonix] 40 mg PO 11/25/17 Warfarin [Coumadin] 5 mg PO 1400 11/25/17 11/25/17 busPIRone [Buspar] 10 mg PO BID 11/25/17 11/25/17 - PHYSICAL EXAM AT DISCHARGE General Appearance: positive: Alert, Moderate distress (Agitated and distressed) , Other (Confused ) Eyes Bilateral: positive: Normal inspection, PERRL, EOMI, No lid inflammation, Conjunctivae nml, No scleral icterus ENT: positive: ENT inspection nml, Pharynx nml, Dry mucous membranes. negative : Purulent nasal drainage, Pharyngeal erythema, Oral lesions Neck: positive: Nml inspection, Thyroid nml, No JVD, Trachea midline. negative : Thyromegaly, Lymphadenopathy (R), Lymphadenopathy (L), Stiff neck, Carotid bruit, Tracheal deviation Respiratory: positive: Chest non-tender, Rales, Rhonchi (Left lung base) Cardiovascular: positive: Regular rate & rhythm, No murmur, No gallop Peripheral Pulses: positive: 2+ Abdomen: positive: Tenderness (diffuse ), Guarding, Other (Distended abdomen) Back: positive: Nml inspection. negative: CVA tenderness (R), CVA tenderness (L ) Skin: positive: Color nml, No rash, Warm. negative: Cyanosis, Diaphoresis, Pallor, Skin rash Extremities: positive: Non-tender, Full ROM, Nml appearance, No pedal edema Neurologic/Psychiatric: positive: CN's nml (2-12), Motor nml, Sensation nml, Mood/affect nml, Disoriented to place, Disoriented to time, Weakness ( Generalized), Other (Confused, demented) - LABS Result Diagrams: 11/26/17 05:45 11/26/17 05:45 Other Lab Results: Laboratory Results WBC 8.1 x10^3/uL (4.8-10.8) 11/26/17 05:45 RBC 3.55 10^6/uL (4.70-6.10) L 11/26/17 05:45 Hgb 12.1 g/dL (14.0-18.0) L 11/26/17 05:45 Hct 35.6 % (42.0-52.0) L 11/26/17 05:45 MCV 100.1 fL (80.0-94.0) H 11/26/17 05:45 MCH 34.2 pg (27.0-31.0) H 11/26/17 05:45 MCHC 34.2 g/dL (32.0-36.0) 11/26/17 05:45 RDW 13.2 % (12.0-15.0) 11/26/17 05:45 Plt Count 138 10^3/uL (130-450) 11/26/17 05:45 MPV 9.0 fL (7.4-11.4) 11/26/17 05:45 Neut # (Auto) 7.0 10^3/uL (1.5-6.6) H 11/26/17 05:45 Lymph # (Auto) 0.5 10^3/uL (1.5-3.5) L 11/26/17 05:45 [place] # (Auto) 0.5 10^3/uL (0.0-1.0) 11/26/17 05:45 Eos # (Auto) 0.0 10^3/uL (0.0-0.7) 11/26/17 05:45 Baso # (Auto) 0.0 10^3/uL (0.0-0.1) 11/26/17 05:45 Absolute Nucleated RBC 0.00 x10^3/uL 11/26/17 05:45 Nucleated RBC % 0.0 /100WBC 11/26/17 05:45 PT 13.1 secs (9.9-12.6) H 11/26/17 05:45 INR 1.2 (0.8-1.2) 11/26/17 05:45 VBG pH 7.470 (7.31-7.41) H 11/25/17 19:06 VBG pCO2 26.0 mmHg (41-51) L 11/25/17 19:06 VBG pO2 43.7 mmHg (25-47) 11/25/17 19:06 VBG HCO3 18.5 mmol/L (23-28) L 11/25/17 19:06 VBG Total CO2 19.3 mmol/L (24-29) L 11/25/17 19:06 VBG O2 Saturation 85.2 % (60-80) H 11/25/17 19:06 VBG Base Excess -3.7 mmol/L (-2 - +2) L 11/25/17 19:06 Sodium 137 mmol/L (135-145) 11/26/17 05:45 Potassium 3.7 mmol/L (3.5-5.0) 11/26/17 05:45 Chloride 111 mmol/L (101-111) 11/26/17 05:45 Carbon Dioxide 19 mmol/L (21-32) L 11/26/17 05:45 Anion Gap 7.0 (6-13) 11/26/17 05:45 BUN 24 mg/dL (6-20) H 11/26/17 05:45 Creatinine 1.4 mg/dL (0.6-1.2) H 11/26/17 05:45 Estimated GFR (MDRD) 49 (>89) L 11/26/17 05:45 Glucose 96 mg/dL (70-100) 11/26/17 05:45 POC Whole Bld Glucose 117 mg/dL (70 - 100) H 11/25/17 17:50 Lactic Acid 1.0 mmol/L (0.5-2.2) 11/26/17 07:26 Calcium 8.2 mg/dL (8.5-10.3) L 11/26/17 05:45 Phosphorus 1.7 mg/dL (2.5-4.6) L 11/26/17 05:45 Magnesium 2.2 mg/dL (1.7-2.8) 11/26/17 05:45 Total Bilirubin 1.1 mg/dL (0.2-1.0) H 11/26/17 05:45 AST 33 IU/L (10-42) 11/26/17 05:45 ALT 17 IU/L (10-60) 11/26/17 05:45 Alkaline Phosphatase 45 IU/L (42-121) 11/26/17 05:45 Ammonia 16.3 umol/L (7-35) 11/25/17 20:35 Troponin I 0.04 ng/mL (<0.49) 11/26/17 05:45 Total Protein 5.6 g/dL (6.7-8.2) L 11/26/17 05:45 Albumin 2.6 g/dL (3.2-5.5) L 11/26/17 05:45 Globulin 3.0 g/dL (2.1-4.2) 11/26/17 05:45 Albumin/Globulin Ratio 0.9 (1.0-2.2) L 11/26/17 05:45 Lipase 22 U/L (22-51) 11/25/17 18:01 Urine Color YELLOW 11/25/17 20:55 Urine Clarity HAZY (CLEAR) 11/25/17 20:55 Urine pH 6.0 PH (5.0-7.5) 11/25/17 20:55 Ur Specific [place] 1.025 (1.002-1.030) 11/25/17 20:55 Urine Protein TRACE mg/dL (NEGATIVE) 11/25/17 20:55 Urine Glucose (UA) NEGATIVE mg/dL (NEGATIVE) 11/25/17 20:55 Urine Ketones NEGATIVE mg/dL (NEGATIVE) 11/25/17 20:55 Urine Occult Blood MODERATE (NEGATIVE) H 11/25/17 20:55 Urine Nitrite NEGATIVE (NEGATIVE) 11/25/17 20:55 Urine Bilirubin NEGATIVE (NEGATIVE) 11/25/17 20:55 Urine Urobilinogen 0.2 (NORMAL) E.U./dL (NORMAL) 11/25/17 20:55 Ur Leukocyte Esterase NEGATIVE (NEGATIVE) 11/25/17 20:55 Urine RBC 11-25 /HPF (0-5) H 11/25/17 20:55 Urine WBC 11-25 /HPF (0-3) H 11/25/17 20:55 Urine WBC Clumps PRESENT 11/25/17 20:55 Ur Squamous Epith Cells RARE Squamous (<= Few) 11/25/17 20:55 Urine Bacteria Few /HPF (None Seen) 11/25/17 20:55 Ur Microscopic Review INDICATED 11/25/17 20:55 Urine Culture Comments INDICATED 11/25/17 20:55 Ethyl Alcohol < 5.0 mg/dL 11/25/17 18:01 Serum Ketones NEGATIVE (NEGATIVE) 11/25/17 18:10 - DIAGNOSTIC IMAGING Diagnostic Imaging Results: Final report reviewed Diagnostic Imaging Results Comments: CT head Impression: No acute intracranial abnormality. Chest x-ray Impression: 1. Sternotomy. No cardiac enlargement. 2. Left lower lobe opacities with small pleural effusion. Abdominal ultrasound Impression: 1. Hepatic echotexture is somewhat coarse raising suspicion for chronic liver disease 2. Enlarged prostate 3. Suspect medical renal disease. Procedure Date: 11/26/2017 Accession Number: [id number] / [id number] Procedure: CT - Chest W/ CPT Code: FULL RESULT: EXAM: CT CHEST EXAM DATE: 11/26/2017 05:26 AM. CLINICAL HISTORY: Left-sided opacities and effusion seen on chest x-ray. COMPARISONS: ABDOMEN COMPLETE 11/25/2017. TECHNIQUE: Routine helical CT imaging was performed through the chest. IV contrast: None. Reconstructions: Coronal and sagittal. In accordance with CT protocol optimization, one or more of the following dose reduction techniques were utilized for this exam: automated exposure control, adjustment of mA and/or KV based on patient size, or use of iterative reconstructive technique. FINDINGS: Lungs/Pleura: Small left pleural effusion. Moderate left lower lobe atelectasis. Mild right lung dependent atelectasis. Mediastinum and Upper Abdomen: Moderate to large hiatal hernia containing more than half of the stomach. Evidence of either distal esophagus or proximal gastric perforation. Moderate complex gas and fluid within the hernia sac adjacent to the stomach on axial images 46 through 52. Gas and fluid pocket to the left of the stomach in the hernia sac measures approximately 7 x 2.5 x 7 cm. There is a small amount of subdiaphragmatic free air as well. Adjacent to the gastric body in the upper abdomen is an approximately 6 x 4 x 4.5 cm gas and fluid collection, axial image 54. Previous CABG. Heart size upper normal. Noncontrast aorta grossly unremarkable. No bulky adenopathy. Bilateral renal cysts. Bones: Previous median sternotomy. No acute osseous abnormality seen. Other: None. IMPRESSION: 1. Either distal esophageal or proximal gastric perforation within a moderate to large hiatal hernia sac in the chest. Thoracic surgery consultation suggested. 2. Gas and fluid collections within the hernia sac and adjacent to the subdiaphragmatic stomach measure up to 6 x 4 x 4.5 cm and may reflect early abscesses. 3. Small left pleural effusion with moderate left lower lobe atelectasis. 4. Previous median sternotomy. - FOLLOW UP Follow Up: Patient transferred to [facility] for thoracic surgery after finding of esophageal or gastric perforation. Transferred to ICU in care of Dr Hollingsworth. Patient placed on broad spectrum IV abx prior to discharge. He was transferred by ACL[facility]. - TIME SPENT Time Spent in Discharge (Minutes): 55
[2017-11-26] MEDS ORDERED: VANCOMYCIN PER PHARMACY 1 GM in SODIUM CHLORIDE 0.9% 250 ML IV SCH (08:00)
[2017-11-26] MEDS ORDERED: VANCOMYCIN INJ 1 GM in SODIUM CHLORIDE 0.9% 250 ML IV SCH (08:00)
[2017-11-26 08:11] VITALS: BP 110/63
[2017-11-26] MEDS: OLANZapine ODT 5 MG TABLET TL SCH (08:24)
[2017-11-26] MEDS: busPIRone 5 MG TABLET PO SCH (08:24)
[2017-11-26] MEDS ORDERED: METOPROLOL SUCCINATE 25 MG TABLET PO SCH (09:00)
[2017-11-26] MEDS ORDERED: CITALOPRAM 10 MG TABLET PO SCH (09:00)
[2017-11-26] MEDS ORDERED: POLYETHYLENE GLYCOL 3350 17 GM PACKET PO SCH (09:00)
[2017-11-26] MEDS ORDERED: THIAMINE INJ 100 MG, FOLIC ACID INJ 1 MG in SODIUM CHLORIDE 0.9% 100ML 100 ML IV SCH ×6 (09:00)
[2017-11-26] MEDS ORDERED: MULTIVITAMIN 10 ML in SODIUM CHLORIDE 0.9% 1,000 ML IV SCH (09:00)
[2017-11-26] MEDS ORDERED: PIPERACILLIN/TAZOBACTAM 4.5 GM in SODIUM CHLORIDE 0.9% MINIBAG 100 ML IV SCH (12:00)
== END 2017-11-26 09:35 | disposition short-term general hospital (02) | DRG 368 ==
LOC: ED 17:34 → MS2 20:17 → OBSVTOIN 21:30
PROVIDERS: ADMIT Internal Medicine; ATTEND Internal Medicine
DX: R41.0 Disorientation, unspecified (principal); R44.3 Hallucinations, unspecified; K22.3 Perforation of esophagus; J18.1 Lobar pneumonia, unspecified organism; Z87.19 Personal history of other diseases of the digestive system; G93.41 Metabolic encephalopathy; K65.1 Peritoneal abscess; Z95.5 Presence of coronary angioplasty implant and graft; N30.01 Acute cystitis with hematuria; D68.51 Activated protein C resistance; K44.9 Diaphragmatic hernia without obstruction or gangrene; F10.20 Alcohol dependence, uncomplicated; N18.3 Chronic kidney disease, stage 3 (moderate); F03.90 Unspecified dementia, unspecified severity, without behavioral disturbance, psychotic disturbance, mood disturbance, and anxiety; I25.10 Atherosclerotic heart disease of native coronary artery without angina pectoris; E78.5 Hyperlipidemia, unspecified; F32.9 Major depressive disorder, single episode, unspecified; Z95.1 Presence of aortocoronary bypass graft; Z86.69 Personal history of other diseases of the nervous system and sense organs; Z86.718 Personal history of other venous thrombosis and embolism; Z79.01 Long term (current) use of anticoagulants; Z79.82 Long term (current) use of aspirin; Z72.0 Tobacco use
CPT/HCPCS: 36415; 70450; 71045; 71260; 76700; 80053; 80320; 81001; 81003; 82009; 82140; 82803; 83605; 83690; 83735; 84100; 84484; 85025; 85610; 87086; 93005; 96365; 96366; 96368; 96375; 99284

== ENCOUNTER 2018-02-04 19:01 | Outpatient (CLI) | payer MEDICARE, OTHER | END 2018-02-04 19:02 | disposition short-term general hospital (02) | LOC: EMS 19:01 | PROVIDERS: ATTEND Surgery | DX: R42 Dizziness and giddiness (principal); R03.1 Nonspecific low blood-pressure reading | CPT/HCPCS: A0425; A0427; A0888 ==

== ENCOUNTER 2018-10-24 20:08 | Outpatient (CLI) | payer MEDICARE, OTHER | END 2018-10-24 20:09 | disposition critical access hospital (66) | LOC: EMS 20:08 | PROVIDERS: ATTEND Surgery | DX: R46.89 Other symptoms and signs involving appearance and behavior (principal); R41.82 Altered mental status, unspecified | CPT/HCPCS: A0425; A0429 ==

== ENCOUNTER 2018-10-24 20:29 | Emergency (ER) | payer MEDICARE, OTHER ==
--- NOTE | 2018-10-24 20:46 | ED Physician Documentation ---
History of Present Illness - Stated complaint Stated Complaint: AMS - Chief complaint Chief Complaint: Neuro - History obtained from History obtained from: Patient - History of Present Illness Timing: Prior to arrival - Additonal information Additional information: Patient is a 78-year-old male with known dementia and chronic alcohol use presenting via EMS. Patient is unable to provide any history. No one is accompanying patient and otherwise information is obtained through EMS. EMS reports that patient has known dementia And was reportedly drinking alcohol earlier tonight. Per , this combination often causes patient to become violent. then called police and ambulance and requested that patient be brought to the ED. reports that by doing so the patient often cools down and is able to come home.EMS denies known trauma, fall, striking of head or other complaints. Patient himself denies any complaints including chest pain, difficulty breathing, abdominal pain, nausea, vomiting, fever, or other concerns. No other improving or worsening factors noted. Patient denies alcohol use, as well as recreational drug use. Review of Systems Unable to obtain: Dementia, Intoxicated, Other PD PAST MEDICAL HISTORY - Past Medical History Past Medical History: Yes Neuro: Dementia - Past Surgical History Other past surgical history: Unable to obtain - Present Medications Home Medications: Ambulatory Orders Medication Instructions Recorded Confirmed Ascorbic Acid 500 mg ORAL DAILY 11/25/17 11/25/17 Citalopram [CeleXA] 20 mg PO DAILY 11/25/17 11/25/17 Metoprolol Succinate 12.5 mg PO DAILY 11/25/17 11/25/17 Nitroglycerin 0.4 mg SL 11/25/17 OLANZapine [Zyprexa Zydis] 10 mg PO 11/25/17 [place]-3S/Dha/Epa/Fish Oil/D3 1 each PO 11/25/17 [[place]-3 + D Softgel] Pantoprazole [Protonix] 40 mg PO 11/25/17 Warfarin [Coumadin] 5 mg PO 1400 11/25/17 11/25/17 busPIRone [Buspar] 10 mg PO BID 11/25/17 11/25/17 - Allergies Allergies/Adverse Reactions: Allergies Allergy/AdvReac Type Severity Reaction Status Date / Time haloperidol [From Haldol] Allergy Anaphylaxis Verified 10/24/18 20:50 - Living Situation Living Situation: reports: With spouse/s.o. Living Arrangement: reports: At home - Social History Does the pt drink ETOH?: Yes PD ED PE NORMAL - Vitals Vital signs reviewed: Yes - General General: No acute distress, Well developed/nourished, Other (Oriented to self only, smells of alcohol, resting comfortably in bed) - HEENT HEENT: Atraumatic, PERRL, EOMI (Gross visual acuity intact. No nystagmus.), Moist mucous membranes, Pharynx benign - Neck Neck: Supple, no meningeal sign - Cardiac Cardiac: RRR, No murmur - Respiratory Respiratory: No respiratory distress, Clear bilaterally - Abdomen Abdomen: Normal bowel sounds, Soft, Non tender, Non distended - Derm Derm: Normal color, Warm and dry, No rash - Extremities Extremities: No deformity, No tenderness to palpate - Neuro Neuro: No motor deficit, No sensory deficit (Oriented only to self.Appears slightly intoxicated with minimally slurred speech. No facial droop or other gross deficit present.) - Psych Psych: Normal mood Results - Vitals Vitals: Vital Signs - 24 hr 10/24/18 20:37 Temperature 37.1 C Heart Rate 69 Respiratory 18 Rate Blood Pressure 153/99 H O2 Saturation 96 Oxygen O2 Source Room air - Labs Labs: Laboratory Tests 10/24/18 10/24/18 10/24/18 20:50 20:50 20:50 WBC 7.2 RBC 4.26 L Hgb 13.7 L Hct 40.3 L MCV 94.6 H MCH 32.2 H MCHC 34.0 RDW 13.0 Plt Count 235 MPV 7.6 Neut # (Auto) 4.9 Lymph # (Auto) 1.5 [place] # (Auto) 0.6 Eos # (Auto) 0.2 Baso # (Auto) 0.1 Absolute Nucleated RBC 0.00 Nucleated RBC % 0.0 Sodium 131 L Potassium 3.9 Chloride 102 Carbon Dioxide 16 L Anion Gap 13.0 BUN 20 Creatinine 1.5 H Estimated GFR (MDRD) 45 L Glucose 90 Calcium 8.5 Total Bilirubin 0.6 AST 30 ALT 18 Alkaline Phosphatase 69 Total Protein 6.3 L Albumin 3.2 Globulin 3.1 Albumin/Globulin Ratio 1.0 Lipase 48 TSH 1.10 Urine Color Urine Clarity Urine pH Ur Specific [place] Urine Protein Urine Glucose (UA) Urine Ketones Urine Occult Blood Urine Nitrite Urine Bilirubin Urine Urobilinogen Ur Leukocyte Esterase Ur Microscopic Review Urine Culture Comments Urine Opiates Screen Ur Oxycodone Screen Urine Methadone Screen Ur Propoxyphene Screen Ur Barbiturates Screen Ur Tricyclics Screen Ur Phencyclidine Scrn Ur Amphetamine Screen U Methamphetamines Scrn U Benzodiazepines Scrn Urine Cocaine Screen U Cannabinoids Screen Ethyl Alcohol 171.9 10/24/18 21:11 WBC RBC Hgb Hct MCV MCH MCHC RDW Plt Count MPV Neut # (Auto) Lymph # (Auto) [place] # (Auto) Eos # (Auto) Baso # (Auto) Absolute Nucleated RBC Nucleated RBC % Sodium Potassium Chloride Carbon Dioxide Anion Gap BUN Creatinine Estimated GFR (MDRD) Glucose Calcium Total Bilirubin AST ALT Alkaline Phosphatase Total Protein Albumin Globulin Albumin/Globulin Ratio Lipase TSH Urine Color YELLOW Urine Clarity CLEAR Urine pH 5.5 Ur Specific [place] <=1.005 Urine Protein NEGATIVE Urine Glucose (UA) NEGATIVE Urine Ketones NEGATIVE Urine Occult Blood TRACE-LYSE Urine Nitrite NEGATIVE Urine Bilirubin NEGATIVE Urine Urobilinogen 0.2 (NORMAL) Ur Leukocyte Esterase NEGATIVE Ur Microscopic Review NOT INDICATED Urine Culture Comments NOT INDICATED Urine Opiates Screen NEGATIVE Ur Oxycodone Screen NEGATIVE Urine Methadone Screen NEGATIVE Ur Propoxyphene Screen NEGATIVE Ur Barbiturates Screen NEGATIVE Ur Tricyclics Screen NEGATIVE Ur Phencyclidine Scrn NEGATIVE Ur Amphetamine Screen NEGATIVE U Methamphetamines Scrn NEGATIVE U Benzodiazepines Scrn NEGATIVE Urine Cocaine Screen NEGATIVE U Cannabinoids Screen NEGATIVE Ethyl Alcohol PD MEDICAL DECISION MAKING - ED course Complexity details: re-evaluated patient, considered differential, d/w patient ED course: Patient presenting via EMS after contacted police and EMS service as patient was reportedly exhibiting hostile behavior. Unfortunately, per report, this is not uncommon for patient given his known dementia and chronic alcohol use. Per EMS, no trauma, fall, striking of head or other injuries were sustained prior to arrival. Additionally, no other known medical complaints. Per EMS, reports that she has sent patient to the ED for the same issues before for him to "cool down". Per EMS, is supposedly coming in the next several hours to apple picker the patient. Physical exam is benign and do not find evidence of new trauma, neurological deficit, or systemic illness. Patient is disoriented and appears slightly intoxicated, but this is likely his baseline. He is unable to provide any history himself. Do not feel he requires imaging at this time as have low suspicion for new acute intracranial injury, concussion, closed injury, stroke. Additionally, do not feel patient requires other imaging has have low suspicion for cardiac, pulmonary, or abdominal issues at this time. Screening lab work and urinalysis ordered. Patient will continue to be monitored.Patient able to ambulate through ED without issue and tolerating oral intake. Screening lab work and urinalysis returned relatively unremarkable except for changes more indicative of underlying disease processes and use of chronic alcohol as opposed to acute issues including slightly decreased H&H and mild hyponatremia, which can be addressed with oral intake.Urinalysis returned relatively unremarkable. Patient does have positive blood alcohol level. Patient's arrived to the ED and able to transport him home. Discussed return precautions, appropriate follow-up, other supportive cares. Departure - Departure Disposition: Home, Self Care Clinical Impression: Alcohol use Dementia Qualifiers: Dementia type: unspecified type Dementia behavioral disturbance: with behavioral disturbance Qualified Code(s): F03.91 - Unspecified dementia with behavioral disturbance Condition: Good Instructions: ED Alcohol Abuse, ED Dementia Caregiver Support Follow-Up: Kole Hebert MD [Primary Care Provider] - Within 3 Days Comments: Recommend avoidance of alcohol and other recreational drugs. Recommend hydration, healthy diet, rest and continuing any home prescriptions as instructed. Please follow-up with primary care physician in the next 2 to 3 days and return to ED sooner if experience worsening symptoms or other concerns.
[2018-10-24 21:04] LABS: BASOPHILS # (AUTO) 0.1 10^3/uL (0.0-0.1); BASOPHILS % (AUTO) 0.9 %; EOSINOPHILS # (AUTO) 0.2 10^3/uL (0.0-0.7); EOSINOPHILS % (AUTO) 2.1 %; HGB - HEMOGLOBIN 13.7 g/dL (14.0-18.0); LYMPHOCYTES # (AUTO) 1.5 10^3/uL (1.5-3.5); LYMPHOCYTES % (AUTO) 20.4 %; MEAN CORPUSCULAR HEMOGLOBIN 32.2 pg (27.0-31.0); MEAN CORPUSCULAR VOLUME 94.6 fL (80.0-94.0); MEAN PLATELET VOLUME 7.6 fL (7.4-11.4); MONOCYTES # (AUTO) 0.6 10^3/uL (0.0-1.0); MONOCYTES % (AUTO) 8.4 %; NEUTROPHILS # (AUTO) 4.9 10^3/uL (1.5-6.6); NEUTROPHILS % (AUTO) 68.2 %; PLT - PLATELET COUNT 235 10^3/uL (130-450); RED BLOOD COUNT 4.26 10^6/uL (4.70-6.10); WHITE BLOOD COUNT 7.2 x10^3/uL (4.8-10.8)
[2018-10-24 21:16] LABS: MUDS CUTOFF CONCENTRATIONS CUTOFF CONC BELOW:
[2018-10-24 21:20] LABS: ALBUMIN 3.2 g/dL (3.2-5.5); BILIRUBIN,TOTAL 0.6 mg/dL (0.2-1.0); CALCIUM 8.5 mg/dL (8.5-10.3); CREATININE 1.5 mg/dL (0.6-1.2); TOTAL PROTEIN 6.3 g/dL (6.7-8.2)
[2018-10-24 21:23] LABS: BILIRUBIN,URINE NEGATIVE (NEGATIVE); GLUCOSE, URINE (UA) NEGATIVE (NEGATIVE); KETONES,URINE (UA) NEGATIVE (NEGATIVE); LEUKOCYTE ESTERASE, URINE NEGATIVE (NEGATIVE); NITRITE,URINE NEGATIVE (NEGATIVE); OCCULT BLOOD,URINE TRACE-LYSE (NEGATIVE); PH,URINE 5.5 PH (5.0-7.5); PROTEIN,URINE NEGATIVE (NEGATIVE); UROBILINOGEN,URINE 0.2 (NORMAL) E.U./dL (NORMAL)
[2018-10-24 21:24] LABS: CLARITY,URINE CLEAR (CLEAR)
[2018-10-24 21:29] LABS: AMPHETAMINE SCREEN,URINE NEGATIVE (NEGATIVE); BENZODIAZEPINES SCREEN, URINE NEGATIVE (NEGATIVE); COCAINE SCREEN URINE NEGATIVE (NEGATIVE); METHADONE SCREEN, URINE NEGATIVE (NEGATIVE); METHAMPHETAMINES SCREEN, URINE NEGATIVE (NEGATIVE); OPIATE SCREEN, URINE NEGATIVE (NEGATIVE); OXYCODONE SCREEN, URINE NEGATIVE (NEGATIVE); PROPOXYPHENE SCREEN, URINE NEGATIVE (NEGATIVE); TRICYCLIC ANTIDEPRESSANT,URINE NEGATIVE (NEGATIVE)
[2018-10-24 22:12] VITALS: BP 150/103
== END 2018-10-24 22:12 | disposition home or self-care (01) ==
LOC: MERGE 20:29 → ED 20:29
DX: F10.920 Alcohol use, unspecified with intoxication, uncomplicated (principal); F03.91 Unspecified dementia, unspecified severity, with behavioral disturbance; E87.1 Hypo-osmolality and hyponatremia; Z79.01 Long term (current) use of anticoagulants
CPT/HCPCS: 36415; 80053; 80306; 80320; 81001; 81003; 83690; 84443; 85025; 87086; 99282; 99283

== ENCOUNTER 2018-11-17 11:03 | Outpatient (CLI) | payer MEDICARE, OTHER | END 2018-11-17 11:04 | disposition critical access hospital (66) | LOC: EMS 11:03 | PROVIDERS: ATTEND Surgery | DX: R55 Syncope and collapse (principal); R03.1 Nonspecific low blood-pressure reading | CPT/HCPCS: A0425; A0427 ==

== ENCOUNTER 2018-11-17 11:24 | Emergency (ER) | payer MEDICARE, OTHER ==
[2018-11-17] MEDS ORDERED: SODIUM CHLORIDE 0.9% 1,000 ML IV ONE ×2 (11:30→12:38)
--- NOTE | 2018-11-17 11:33 | ED Physician Documentation ---
History of Present Illness - Stated complaint Stated Complaint: UNCONSCIOUS - History obtained from History obtained from: EMS - Additonal information Additional information: Patient is a 78-year-old male with known dementia and chronic alcohol use presenting via EMS for altered mental status. Patient is unable to provide any history and no family or friends accompanied patient at this time.Per EMS, contacted ambulance service as patient became "unresponsive "but was with a pulse and otherwise breathing on his own. notes that patient has been drinking alcohol. No known trauma or other symptoms prior to this incident. Up on EMS arrival, paramedics determined patient's GCS to be 3, but protecting his own airway. Appropriate blood glucose of over 100. In route to hospital, patient awoke and otherwise at his normal mental and physical baseline given his known dementia. Upon chart review, patient has been seen by this physician previously for an extremely similar situation during which his sent him to the ER to "cool down". Today, patient himself denies any complaints including headache, chest pain, difficulty breathing, abdominal pain, vomiting, urinary or stool changes or otherwise. Patient is anticoagulated with warfarin. No other improving or worsening factors noted. Review of Systems Unable to obtain: Dementia, Intoxicated PD PAST MEDICAL HISTORY - Past Medical History Cardiovascular: Deep vein thrombosis, High cholesterol, Coronary artery disease Respiratory: None Neuro: Dementia GI: GI bleed : Renal insuffiency Psych: Depression Musculoskeletal: Osteoarthritis, Gout - Past Surgical History Past Surgical History: Yes Ortho: Other Cardiovascular: CABG, Coronary stent - Present Medications Home Medications: Ambulatory Orders Medication Instructions Recorded Confirmed Ascorbic Acid 500 mg ORAL DAILY 11/25/17 11/25/17 Citalopram [CeleXA] 20 mg PO DAILY 11/25/17 11/25/17 Metoprolol Succinate 12.5 mg PO DAILY 11/25/17 11/25/17 Nitroglycerin 0.4 mg SL 11/25/17 OLANZapine [Zyprexa Zydis] 10 mg PO 11/25/17 [place]-3S/Dha/Epa/Fish Oil/D3 1 each PO 11/25/17 [[place]-3 + D Softgel] Pantoprazole [Protonix] 40 mg PO 11/25/17 Warfarin [Coumadin] 5 mg PO 1400 11/25/17 11/25/17 busPIRone [Buspar] 10 mg PO BID 11/25/17 11/25/17 - Allergies Allergies/Adverse Reactions: Allergies Allergy/AdvReac Type Severity Reaction Status Date / Time haloperidol [From Haldol] Allergy Anaphylaxis Verified 10/24/18 20:50 - Social History Does the pt smoke?: No Smoking Status: Unknown if ever smoked Does the pt drink ETOH?: Yes Does the pt have substance abuse?: No - Immunizations Immunizations are current?: Yes - POLST Patient has POLST: No POLST Status: Full Code PD ED PE NORMAL - Vitals Vital signs reviewed: Yes - General General: No acute distress, Well developed/nourished, Other (Smells of alcohol). No: Alert and oriented X 3 (Oriented to self only (baseline)) - HEENT HEENT: Atraumatic, Moist mucous membranes, Pharynx benign. No: PERRL (Miotic and minimally reactive) - Neck Neck: No bony TTP - Cardiac Cardiac: RRR, No murmur - Respiratory Respiratory: No respiratory distress, Clear bilaterally - Abdomen Abdomen: Soft, Non tender, Non distended - Derm Derm: Normal color, Warm and dry, No rash - Extremities Extremities: No deformity, No tenderness to palpate - Neuro Neuro: Other (Oriented only to self, no other gross motor or sensory deficits noted. No facial droop, normal speech. Patient appears to be at his baseline.) Results - Vitals Vitals: Vital Signs - 24 hr 11/17/18 11/17/18 11/17/18 11:24 11:31 12:31 Temperature 36.6 C Heart Rate 70 77 71 Respiratory 22 18 18 Rate Blood Pressure 85/64 L 92/66 86/64 L O2 Saturation 97 99 100 Oxygen O2 Source Room air - EKG (time done) 1125 Rate: Rate (enter#) (69) Rhythm: NSR Intervals: Prolonged QT Ischemia: Non specific changes - Labs Labs: Laboratory Tests 11/17/18 11/17/18 11/17/18 11:35 11:35 11:35 WBC 9.9 RBC 3.88 L Hgb 12.4 L Hct 37.6 L MCV 96.9 H MCH 32.0 H MCHC 33.0 RDW 13.2 Plt Count 238 MPV 9.3 Neut # (Auto) 8.2 H Lymph # (Auto) 0.8 L [place] # (Auto) 0.8 Eos # (Auto) 0.0 Baso # (Auto) 0.0 Absolute Nucleated RBC 0.00 Nucleated RBC % 0.0 PT 14.2 H INR 1.3 H APTT 25.6 Sodium 140 Potassium 2.9 L Chloride 110 Carbon Dioxide 15 L Anion Gap 15.0 H BUN 20 Creatinine 1.4 H Estimated GFR (MDRD) 49 L Glucose 135 H Calcium 8.8 Total Bilirubin 0.6 AST 33 ALT 20 Alkaline Phosphatase 57 Troponin I Total Protein 5.8 L Albumin 3.0 L Globulin 2.8 Albumin/Globulin Ratio 1.1 Lipase 35 TSH Urine Color Urine Clarity Urine pH Ur Specific [place] Urine Protein Urine Glucose (UA) Urine Ketones Urine Occult Blood Urine Nitrite Urine Bilirubin Urine Urobilinogen Ur Leukocyte Esterase Ur Microscopic Review Urine Culture Comments Salicylates < 6.0 Urine Opiates Screen Ur Oxycodone Screen Urine Methadone Screen Ur Propoxyphene Screen Acetaminophen < 10 L Ur Barbiturates Screen Ur Tricyclics Screen Ur Phencyclidine Scrn Ur Amphetamine Screen U Methamphetamines Scrn U Benzodiazepines Scrn Urine Cocaine Screen U Cannabinoids Screen Ethyl Alcohol 64.8 11/17/18 11/17/18 11/17/18 11:35 11:35 13:00 WBC RBC Hgb Hct MCV MCH MCHC RDW Plt Count MPV Neut # (Auto) Lymph # (Auto) [place] # (Auto) Eos # (Auto) Baso # (Auto) Absolute Nucleated RBC Nucleated RBC % PT INR APTT Sodium Potassium Chloride Carbon Dioxide Anion Gap BUN Creatinine Estimated GFR (MDRD) Glucose Calcium Total Bilirubin AST ALT Alkaline Phosphatase Troponin I < 0.04 Total Protein Albumin Globulin Albumin/Globulin Ratio Lipase TSH 2.28 Urine Color YELLOW Urine Clarity CLEAR Urine pH 6.0 Ur Specific [place] 1.010 Urine Protein NEGATIVE Urine Glucose (UA) NEGATIVE Urine Ketones NEGATIVE Urine Occult Blood NEGATIVE Urine Nitrite NEGATIVE Urine Bilirubin NEGATIVE Urine Urobilinogen 0.2 (NORMAL) Ur Leukocyte Esterase NEGATIVE Ur Microscopic Review NOT INDICATED Urine Culture Comments NOT INDICATED Salicylates Urine Opiates Screen NEGATIVE Ur Oxycodone Screen NEGATIVE Urine Methadone Screen NEGATIVE Ur Propoxyphene Screen NEGATIVE Acetaminophen Ur Barbiturates Screen NEGATIVE Ur Tricyclics Screen NEGATIVE Ur Phencyclidine Scrn NEGATIVE Ur Amphetamine Screen NEGATIVE U Methamphetamines Scrn NEGATIVE U Benzodiazepines Scrn NEGATIVE Urine Cocaine Screen NEGATIVE U Cannabinoids Screen NEGATIVE Ethyl Alcohol PD MEDICAL DECISION MAKING - ED course Complexity details: reviewed old records, reviewed results, re-evaluated patient, considered differential, d/w patient ED course: Patient has known dementia and is unable to provide any history. This physician is somewhat familiar with this patient and his history as I have seen him recently before. Unfortunately, patient continues to use alcohol which exacerbates other issues including his dementia. Patient then also combines alc ohol with his multiple medical prescriptions which can also cause issues. Patient arrives conscious protecting his own airway and without complaint. No signs of trauma, neurological deficits or changes from his baseline, or signs of systemic illness or sepsis. Do not feel patient requires emergent imaging at this time. Patient continued on IV fluids and screening lab work, drug screen, urinalysis obtained. No significant acute findings, but changes indicative of underlying disease processes and comorbidities. However, patient does have slightly decreased potassium level as compared to previous and was given oral potassium in the ED. Patient's sodium level also slightly decreased, which was addressed with IV fluids. Otherwise, patient remained at his baseline in the ED without complaints. Family at bedside. Social work consulted as family was interested in "respite care ". However, patient does not require any further ED treatment, hospitalization, consult at this time. Feel that he is safe to discharge home with close follow-up by primary care physician and advised on cessation of alcohol. Departure - Departure Disposition: 01 Home, Self Care Clinical Impression: Alcohol intoxication Qualifiers: Complication of substance-induced condition: uncomplicated Qualified Code(s): F10.920 - Alcohol use, unspecified with intoxication, uncomplicated Condition: Good Instructions: ED Alcohol Intoxication Follow-Up: Kole Hebert MD [Primary Care Provider] - Within 3 Days Comments: Please do not use alcohol any further as this worsens your dementia and other medical problems. It is not good to combine alcohol with your medical prescriptions. Doing so can cause issues. Please follow-up with your primary care physician in next 2 to 3 days. Return to ED sooner if experience worsening symptoms or have other concerns.
[2018-11-17 11:42] LABS: BASOPHILS % (AUTO) 0.2 %; EOSINOPHILS % (AUTO) 0.2 %; HGB - HEMOGLOBIN 12.4 g/dL (14.0-18.0); LYMPHOCYTES # (AUTO) 0.8 10^3/uL (1.5-3.5); LYMPHOCYTES % (AUTO) 8.1 %; MEAN CORPUSCULAR VOLUME 96.9 fL (80.0-94.0); MEAN PLATELET VOLUME 9.3 fL (7.4-11.4); MONOCYTES # (AUTO) 0.8 10^3/uL (0.0-1.0); MONOCYTES % (AUTO) 7.7 %; NEUTROPHILS # (AUTO) 8.2 10^3/uL (1.5-6.6); NEUTROPHILS % (AUTO) 83.3 %; PLT - PLATELET COUNT 238 10^3/uL (130-450); RED BLOOD COUNT 3.88 10^6/uL (4.70-6.10); RED CELL DISTRIBUTION WIDTH 13.2 % (12.0-15.0); WHITE BLOOD COUNT 9.9 x10^3/uL (4.8-10.8)
[2018-11-17 11:57] LABS: INR 1.3 (0.8-1.2); PT - PROTHROMBIN TIME 14.2 secs (9.9-12.6)
[2018-11-17 12:00] LABS: ACETAMINOPHEN < 10 ug/mL (10-30); ALBUMIN/GLOBULIN RATIO 1.1 (1.0-2.2); ALKALINE PHOSPHATASE 57 IU/L (42-121); ALT ALANINE AMINOTRANSFERASE 20 IU/L (10-60); AST ASPARTATE AMINOTRANSFERASE 33 IU/L (10-42); BILIRUBIN,TOTAL 0.6 mg/dL (0.2-1.0); BUN - BLOOD UREA NITROGEN 20 mg/dL (6-20); CALCIUM 8.8 mg/dL (8.5-10.3); CARBON DIOXIDE - CO2 15 mmol/L (21-32); CHLORIDE 110 mmol/L (101-111); CREATININE 1.4 mg/dL (0.6-1.2); GFR - MDRD 49 (>89); GLUCOSE 135 mg/dL (70-100); LIPASE 35 U/L (22-51); SALICYLATE < 6.0 mg/dL; SODIUM 140 mmol/L (135-145); TOTAL PROTEIN 5.8 g/dL (6.7-8.2)
[2018-11-17 12:05] LABS: PARTIAL THROMBOPLASTIN TIME 25.6 secs (24.9-33.3)
[2018-11-17] MEDS ORDERED: POTASSIUM CHLORIDE 20 MEQ/15 ML UDC PO STA (12:37)
[2018-11-17 13:03] LABS: MUDS CUTOFF CONCENTRATIONS CUTOFF CONC BELOW:
[2018-11-17 13:19] LABS: BILIRUBIN,URINE NEGATIVE (NEGATIVE); GLUCOSE, URINE (UA) NEGATIVE (NEGATIVE); KETONES,URINE (UA) NEGATIVE (NEGATIVE); LEUKOCYTE ESTERASE, URINE NEGATIVE (NEGATIVE); NITRITE,URINE NEGATIVE (NEGATIVE); OCCULT BLOOD,URINE NEGATIVE (NEGATIVE); PROTEIN,URINE NEGATIVE (NEGATIVE); UROBILINOGEN,URINE 0.2 (NORMAL) E.U./dL (NORMAL)
[2018-11-17 13:28] LABS: AMPHETAMINE SCREEN,URINE NEGATIVE (NEGATIVE); BENZODIAZEPINES SCREEN, URINE NEGATIVE (NEGATIVE); COCAINE SCREEN URINE NEGATIVE (NEGATIVE); METHADONE SCREEN, URINE NEGATIVE (NEGATIVE); METHAMPHETAMINES SCREEN, URINE NEGATIVE (NEGATIVE); OPIATE SCREEN, URINE NEGATIVE (NEGATIVE); OXYCODONE SCREEN, URINE NEGATIVE (NEGATIVE); PROPOXYPHENE SCREEN, URINE NEGATIVE (NEGATIVE); TRICYCLIC ANTIDEPRESSANT,URINE NEGATIVE (NEGATIVE)
[2018-11-17 13:29] LABS: CLARITY,URINE CLEAR (CLEAR)
[2018-11-17 15:31] VITALS: BP 130/93
== END 2018-11-17 15:53 | disposition home or self-care (01) ==
LOC: ED 11:24
DX: F10.129 Alcohol abuse with intoxication, unspecified (principal); Y90.3 Blood alcohol level of 60-79 mg/100 ml; E87.6 Hypokalemia; E87.1 Hypo-osmolality and hyponatremia; F03.90 Unspecified dementia, unspecified severity, without behavioral disturbance, psychotic disturbance, mood disturbance, and anxiety; F32.9 Major depressive disorder, single episode, unspecified; I25.10 Atherosclerotic heart disease of native coronary artery without angina pectoris; E78.00 Pure hypercholesterolemia, unspecified; N28.9 Disorder of kidney and ureter, unspecified; M19.90 Unspecified osteoarthritis, unspecified site; M10.9 Gout, unspecified; Z86.718 Personal history of other venous thrombosis and embolism; Z87.19 Personal history of other diseases of the digestive system; Z95.1 Presence of aortocoronary bypass graft; Z95.5 Presence of coronary angioplasty implant and graft; Z79.01 Long term (current) use of anticoagulants
CPT/HCPCS: 36415; 81003; 83690; 84484; 85610; 85730; 93005; 96360; 96361; 99283; 99284; A9270; 80053; 80306; 80307; 80320; 80329; 81001; 84443; 85025; 87086

== ENCOUNTER 2018-11-26 14:01 | Outpatient (CLI) | payer MEDICARE, OTHER | END 2018-11-26 14:02 | disposition critical access hospital (66) | LOC: EMS 14:01 | PROVIDERS: ATTEND Surgery | DX: R53.1 Weakness (principal); R50.9 Fever, unspecified | CPT/HCPCS: A0425; A0429 ==

== ENCOUNTER 2018-11-26 14:26 | Emergency (ER) | payer MEDICARE, OTHER ==
--- NOTE | 2018-11-26 14:40 | ED Physician Documentation ---
History of Present Illness - Stated complaint Stated Complaint: ALOC - History obtained from History obtained from: Patient, EMS - Additonal information Additional information: Patient is a 78-year-old male with history of dementia and chronic alcoholism as well as other comorbidities presenting to the ED with concern for fever and urinary incontinence. Patient is extremely well-known to the ED. No family or friends accompanying him and given his known dementia, further details are difficult to obtain. Patient is only oriented to himself (baseline) and denies any particular complaints including fever, difficulty breathing, chest pain, abdominal pain, urinary changes, or stool changes. Patient does admit to drinking alcohol today. No other drooping or worsening factors noted. Per EMS, no history of trauma or other particular complaints. Review of Systems Unable to obtain: Dementia PD PAST MEDICAL HISTORY - Past Medical History Cardiovascular: Deep vein thrombosis, High cholesterol, Coronary artery disease Respiratory: None Neuro: Dementia GI: GI bleed : Renal insuffiency Psych: Depression Musculoskeletal: Osteoarthritis, Gout - Past Surgical History Past Surgical History: Yes Ortho: Other Cardiovascular: CABG, Coronary stent - Present Medications Home Medications: Ambulatory Orders Medication Instructions Recorded Confirmed Ascorbic Acid 500 mg ORAL DAILY 11/25/17 11/25/17 Citalopram [CeleXA] 20 mg PO DAILY 11/25/17 11/25/17 Metoprolol Succinate 12.5 mg PO DAILY 11/25/17 11/25/17 Nitroglycerin 0.4 mg SL 11/25/17 OLANZapine [Zyprexa Zydis] 10 mg PO 11/25/17 [place]-3S/Dha/Epa/Fish Oil/D3 1 each PO 11/25/17 [[place]-3 + D Softgel] Pantoprazole [Protonix] 40 mg PO 11/25/17 Warfarin [Coumadin] 5 mg PO 1400 11/25/17 11/25/17 busPIRone [Buspar] 10 mg PO BID 11/25/17 11/25/17 - Allergies Allergies/Adverse Reactions: Allergies Allergy/AdvReac Type Severity Reaction Status Date / Time haloperidol [From Haldol] Allergy Anaphylaxis Verified 11/26/18 14:51 - Social History Does the pt smoke?: No Smoking Status: Unknown if ever smoked Does the pt drink ETOH?: Yes Does the pt have substance abuse?: No - Immunizations Immunizations are current?: Yes - POLST Patient has POLST: No POLST Status: Full Code PD ED PE NORMAL - Vitals Vital signs reviewed: Yes - General General: No acute distress, Well developed/nourished, Other (Smells of urine). No: Alert and oriented X 3 (to self only) - HEENT HEENT: Atraumatic, Moist mucous membranes - Cardiac Cardiac: RRR, No murmur - Respiratory Respiratory: No respiratory distress, Clear bilaterally - Abdomen Abdomen: Soft, Non tender, Non distended - Derm Derm: Normal color, Warm and dry, No rash - Extremities Extremities: No deformity, No tenderness to palpate - Neuro Neuro: No motor deficit, No sensory deficit, Other (Appears at baseline ). No: Alert and oriented X 3 (to self only) - Psych Psych: Normal mood, Normal affect Results - Vitals Vitals: Vital Signs - 24 hr 11/26/18 11/26/18 11/26/18 14:32 14:44 16:44 Temperature 36.5 C 98.4 C H Heart Rate 90 86 88 Respiratory 16 18 18 Rate Blood Pressure 121/81 H 135/91 H 124/84 H O2 Saturation 96 99 98 Oxygen O2 Source Room air - EKG (time done) 1457 Rate: Rate (enter#) (91) Rhythm: NSR Intervals: Prolonged [place] Ischemia: Non specific changes Compare to prior EKG: Unchanged from prior EKG - Labs Labs: Laboratory Tests 11/26/18 11/26/18 11/26/18 15:05 15:05 15:05 WBC 10.2 RBC 3.91 L Hgb 13.0 L Hct 37.2 L MCV 95.1 H MCH 33.2 H MCHC 34.9 RDW 12.9 Plt Count 188 MPV 9.6 Neut # (Auto) 8.9 H Lymph # (Auto) 0.3 L [place] # (Auto) 0.9 Eos # (Auto) 0.0 Baso # (Auto) 0.0 Absolute Nucleated RBC 0.00 Nucleated RBC % 0.0 Sodium 133 L Potassium 3.8 Chloride 103 Carbon Dioxide 18 L Anion Gap 12.0 BUN 31 H Creatinine 1.8 H Estimated GFR (MDRD) 37 L Glucose 131 H Lactic Acid Calcium 8.8 Total Bilirubin 1.0 AST 36 ALT 18 Alkaline Phosphatase 68 Troponin I 0.04 Total Protein 6.7 Albumin 3.3 Globulin 3.4 Albumin/Globulin Ratio 1.0 Lipase 27 Urine Color Urine Clarity Urine pH Ur Specific [place] Urine Protein Urine Glucose (UA) Urine Ketones Urine Occult Blood Urine Nitrite Urine Bilirubin Urine Urobilinogen Ur Leukocyte Esterase Urine RBC Urine WBC Ur Squamous Epith Cells Amorphous Sediment Urine Bacteria Ur Microscopic Review Urine Culture Comments Salicylates < 6.0 Urine Opiates Screen Ur Oxycodone Screen Urine Methadone Screen Ur Propoxyphene Screen Acetaminophen < 10 L Ur Barbiturates Screen Ur Tricyclics Screen Ur Phencyclidine Scrn Ur Amphetamine Screen U Methamphetamines Scrn U Benzodiazepines Scrn Urine Cocaine Screen U Cannabinoids Screen Ethyl Alcohol < 5.0 11/26/18 11/26/18 15:05 16:45 WBC RBC Hgb Hct MCV MCH MCHC RDW Plt Count MPV Neut # (Auto) Lymph # (Auto) [place] # (Auto) Eos # (Auto) Baso # (Auto) Absolute Nucleated RBC Nucleated RBC % Sodium Potassium Chloride Carbon Dioxide Anion Gap BUN Creatinine Estimated GFR (MDRD) Glucose Lactic Acid 1.2 Calcium Total Bilirubin AST ALT Alkaline Phosphatase Troponin I Total Protein Albumin Globulin Albumin/Globulin Ratio Lipase Urine Color YELLOW Urine Clarity CLEAR Urine pH 5.0 Ur Specific [place] 1.020 Urine Protein TRACE Urine Glucose (UA) NEGATIVE Urine Ketones NEGATIVE Urine Occult Blood LARGE H Urine Nitrite NEGATIVE Urine Bilirubin NEGATIVE Urine Urobilinogen 0.2 (NORMAL) Ur Leukocyte Esterase NEGATIVE Urine RBC 0-5 Urine WBC 0-3 Ur Squamous Epith Cells NONE SEEN Amorphous Sediment Few Urine Bacteria None Seen Ur Microscopic Review INDICATED Urine Culture Comments NOT INDICATED Salicylates Urine Opiates Screen NEGATIVE Ur Oxycodone Screen NEGATIVE Urine Methadone Screen NEGATIVE Ur Propoxyphene Screen NEGATIVE Acetaminophen Ur Barbiturates Screen NEGATIVE Ur Tricyclics Screen POSITIVE H Ur Phencyclidine Scrn NEGATIVE Ur Amphetamine Screen NEGATIVE U Methamphetamines Scrn NEGATIVE U Benzodiazepines Scrn NEGATIVE Urine Cocaine Screen NEGATIVE U Cannabinoids Screen NEGATIVE Ethyl Alcohol PD MEDICAL DECISION MAKING - ED course Complexity details: reviewed old records, reviewed results, re-evaluated patient, considered differential, d/w patient, d/w family ED course: Patient is extremely well-known to the ED and arrives and his mental and physical baseline. Unfortunately, he is unable to provide further details. Per EMS, they were originally called for a lift assist and they took his temperature and noted to be slightly elevated.EMS felt that patient should come to the ED for further evaluation. Physical exam is relatively unremarkable with no new neurological deficits, signs of trauma, or obvious signs of infection. Obtained blood work including blood cultures, as well as urinalysis and urine culture. Also obtain EKG and cardiac enzymes. Chest x-ray also ordered to further evaluate for possible pneumonia. Have low suspicion for pneumonia, PE, ACS, NC, unstable angina, dissection, aneurysm, but considered. Also have low suspicion for intra-abdominal pathology except for UTI based on symptoms and history. Screening lab work returned without evidence of acute abnormalities and upon review, measurements very similar to previous. EKG and troponin did not reflect ischemia. Chest x-ray did not find pneumonia or other complications. Urinalysis did not show signs of infection. Feel the patient is safe to discharge home with family at this time. Departure - Departure Disposition: 01 Home, Self Care Clinical Impression: Dementia Qualifiers: Dementia type: unspecified type Dementia behavioral disturbance: without behavioral disturbance Qualified Code(s): F03.90 - Unspecified dementia without behavioral disturbance Condition: Good Instructions: ED Dementia Caregiver Support Follow-Up: your,doctor [Other] - Within 3 Days Comments: Please continue all home medications as previously prescribed. Please avoid alcohol and other recreational drugs. Please follow-up with primary care physician in next 2 to 3 days and return to ED sooner if experience worsening symptoms or other concerns.
[2018-11-26] MEDS ORDERED: SODIUM CHLORIDE 0.9% 1,000 ML IV ONE (14:52)
[2018-11-26 15:17] LABS: BASOPHILS % (AUTO) 0.3 %; EOSINOPHILS % (AUTO) 0.2 %; LYMPHOCYTES # (AUTO) 0.3 10^3/uL (1.5-3.5); LYMPHOCYTES % (AUTO) 2.7 %; MEAN CORPUSCULAR HEMOGLOBIN 33.2 pg (27.0-31.0); MEAN CORPUSCULAR HGB CONC 34.9 g/dL (32.0-36.0); MEAN CORPUSCULAR VOLUME 95.1 fL (80.0-94.0); MEAN PLATELET VOLUME 9.6 fL (7.4-11.4); MONOCYTES # (AUTO) 0.9 10^3/uL (0.0-1.0); NEUTROPHILS # (AUTO) 8.9 10^3/uL (1.5-6.6); NEUTROPHILS % (AUTO) 87.2 %; PLT - PLATELET COUNT 188 10^3/uL (130-450); RED BLOOD COUNT 3.91 10^6/uL (4.70-6.10); RED CELL DISTRIBUTION WIDTH 12.9 % (12.0-15.0); WHITE BLOOD COUNT 10.2 x10^3/uL (4.8-10.8)
[2018-11-26 15:33] LABS: ACETAMINOPHEN < 10 ug/mL (10-30); ALBUMIN 3.3 g/dL (3.2-5.5); ALKALINE PHOSPHATASE 68 IU/L (42-121); ALT ALANINE AMINOTRANSFERASE 18 IU/L (10-60); AST ASPARTATE AMINOTRANSFERASE 36 IU/L (10-42); BUN - BLOOD UREA NITROGEN 31 mg/dL (6-20); CALCIUM 8.8 mg/dL (8.5-10.3); CARBON DIOXIDE - CO2 18 mmol/L (21-32); CHLORIDE 103 mmol/L (101-111); CREATININE 1.8 mg/dL (0.6-1.2); GFR - MDRD 37 (>89); GLUCOSE 131 mg/dL (70-100); LIPASE 27 U/L (22-51); SALICYLATE < 6.0 mg/dL; SODIUM 133 mmol/L (135-145); TOTAL PROTEIN 6.7 g/dL (6.7-8.2)
[2018-11-26 16:51] LABS: MUDS CUTOFF CONCENTRATIONS CUTOFF CONC BELOW:
[2018-11-26 16:56] LABS: BILIRUBIN,URINE NEGATIVE (NEGATIVE); GLUCOSE, URINE (UA) NEGATIVE (NEGATIVE); KETONES,URINE (UA) NEGATIVE (NEGATIVE); LEUKOCYTE ESTERASE, URINE NEGATIVE (NEGATIVE); NITRITE,URINE NEGATIVE (NEGATIVE); OCCULT BLOOD,URINE LARGE (NEGATIVE); PROTEIN,URINE TRACE mg/dL (NEGATIVE); UROBILINOGEN,URINE 0.2 (NORMAL) E.U./dL (NORMAL)
[2018-11-26 17:05] LABS: CLARITY,URINE CLEAR (CLEAR)
[2018-11-26 17:06] LABS: AMPHETAMINE SCREEN,URINE NEGATIVE (NEGATIVE); BENZODIAZEPINES SCREEN, URINE NEGATIVE (NEGATIVE); COCAINE SCREEN URINE NEGATIVE (NEGATIVE); METHADONE SCREEN, URINE NEGATIVE (NEGATIVE); METHAMPHETAMINES SCREEN, URINE NEGATIVE (NEGATIVE); OPIATE SCREEN, URINE NEGATIVE (NEGATIVE); OXYCODONE SCREEN, URINE NEGATIVE (NEGATIVE); PROPOXYPHENE SCREEN, URINE NEGATIVE (NEGATIVE); TRICYCLIC ANTIDEPRESSANT,URINE POSITIVE (NEGATIVE)
[2018-11-26 17:27] LABS: BACTERIA,URINE None Seen /HPF (None Seen); RBC,URINE 0-5 /HPF (0-5); SQUAMOUS EPITHELIAL CELL,UR NONE SEEN (<= Few)
[2018-11-26 17:28] LABS: AMORPHOUS SEDIMENT,UR Few /LPF
--- NOTE | 2018-11-26 18:20 | XRAY Report ---
Reason: cough Procedure Date: 11/26/2018 Accession Number: [id number] / [id number] Procedure: XR - Chest 2 View X-Ray CPT Code: 36419 FULL RESULT: EXAM: CHEST RADIOGRAPHY EXAM DATE: 11/26/2018 03:25 PM. CLINICAL HISTORY: Cough. COMPARISON: CHEST 1 VIEW 11/25/2017 8:24 PM. TECHNIQUE: 2 views. FINDINGS: Lungs/Pleura: He is opacification of left hemithorax is positional. No focal opacity. No pulmonary edema. No focal opacities evident. No pleural effusion. No pneumothorax. Normal volumes. Mediastinum: Heart and mediastinal contours are unremarkable. Other: None. IMPRESSION: No acute cardiopulmonary process. RADIA
[2018-11-26 18:44] VITALS: BP 130/91
== END 2018-11-26 18:44 | disposition home or self-care (01) ==
LOC: EDUNIT# → ED 14:26
DX: R50.9 Fever, unspecified (principal); R32 Unspecified urinary incontinence; F03.90 Unspecified dementia, unspecified severity, without behavioral disturbance, psychotic disturbance, mood disturbance, and anxiety; F10.20 Alcohol dependence, uncomplicated; I44.4 Left anterior fascicular block; I44.0 Atrioventricular block, first degree; Z86.718 Personal history of other venous thrombosis and embolism; Z79.01 Long term (current) use of anticoagulants; I25.10 Atherosclerotic heart disease of native coronary artery without angina pectoris; Z95.1 Presence of aortocoronary bypass graft
CPT/HCPCS: 36415; 71046; 80053; 80306; 80307; 80320; 80329; 81001; 81003; 83605; 83690; 84484; 85025; 87040; 87086; 93005; 99283; 99284

== ENCOUNTER 2019-03-02 19:16 | Outpatient (CLI) | payer MEDICARE, OTHER | END 2019-03-02 19:17 | disposition short-term general hospital (02) | LOC: EMS 19:16 | PROVIDERS: ATTEND Surgery | DX: R41.0 Disorientation, unspecified (principal); R29.6 Repeated falls; W19.XXXA Unspecified fall, initial encounter; Y92.008 Other place in unspecified non-institutional (private) residence as the place of occurrence of the external cause | CPT/HCPCS: A0425; A0429; A0888 ==

== ENCOUNTER 2019-03-14 08:00 | Outpatient (CLI) | payer MEDICARE, OTHER ==
[2019-03-16 14:52] LABS: CALCIUM 9.9 mg/dL (8.5-10.3); CREATININE 1.2 mg/dL (0.6-1.2); MAGNESIUM 2.7 mg/dL (1.7-2.8)
== END 2019-03-14 23:59 | disposition home or self-care (01) ==
LOC: LAB.R 08:00
DX: G93.41 Metabolic encephalopathy (principal); I25.811 Atherosclerosis of native coronary artery of transplanted heart without angina pectoris; R13.10 Dysphagia, unspecified; R25.1 Tremor, unspecified; K21.9 Gastro-esophageal reflux disease without esophagitis; I82.409 Acute embolism and thrombosis of unspecified deep veins of unspecified lower extremity; I25.810 Atherosclerosis of coronary artery bypass graft(s) without angina pectoris; Z79.01 Long term (current) use of anticoagulants; Z79.899 Other long term (current) drug therapy
CPT/HCPCS: 80048; 83735